=== PATIENT | female | born 1965 | race African-American/Black ===

== ENCOUNTER 2016-09-27 16:21 | Emergency (ER) | payer OTHER ==
[~2016-09-27] VITALS: Ht 170.2 cm; Wt 117.9 kg
[~2016-09-27 16:21] MED LIST: ACETAMINOPHEN500 M3 ORAL; AZITHROMYCIN250 MG ORAL; BACTRIM DS TAB1 EAC1 ORAL; BENAZEPRIL-HCT1 EACH ORAL; CIPROFLOXACIN500 M2 ORAL; CYCLOBENZAPRINE10 MG ORAL; IBUPROFEN600 MG ORAL; LISINOPRIL2.5 MG ORAL; NORCO 5-325 TA1 EACH ORAL; TRAMADOL HCL50 MG ORAL; TYLENOL EXTRA500 MG ORAL
[2016-09-27] MEDS ORDERED: Ketorolac 30mg Inj IV ONE (16:30)
[2016-09-27 16:38] VITALS: BP 165/76
--- NOTE | 2016-09-27 16:40 | Emergency Room Report ---
History of Present Illness General Chief Complaint: Chest Pain Source: Patient, EMS Present Illness HPI 51 YOF BIBEMS for full-day of right sided non radiating chest pain. No assoc nausea/vomiting, diaphoresis, SOB. No previous AMI or PE. Got ASA but declined nitro from EMS. Pain is intermittent, worse with movement. Allergies: Coded Allergies: No Known Allergies (Unverified , 09/25/14) Patient History Past Medical History: HTN Past Surgical History: none Pertinent Family History: none Social History: Denies: alcohol use, drug use, smoking Now: No Immunizations: UTD Reviewed Nursing Documentation: PMH: Agreed, PSxH: Agreed Nursing Documentation-PMH Hx Cardiac Problems: No Hx Hypertension: Yes Hx Pacemaker: No Hx Asthma: No Hx COPD: No Hx Diabetes: Yes Hx Cancer: No Hx Gastrointestinal Problems: No Hx Dialysis: No Hx Neurological Problems: No Hx Cerebrovascular Accident: No Hx Seizures: No Review of Systems All Other Systems: negative except mentioned in HPI Physical Exam Vital Signs Date Time Temp Pulse Resp B/P Pulse Ox O2 Delivery O2 Flow Rate FiO2 09/27/16 16:15 97.3 86 16 189/106 97 Room Air Sp02 EP Interpretation: reviewed, normal General Appearance: normal inspection, well appearing, no apparent distress, alert, GCS 15, non-toxic, obese Head: normocephalic, atraumatic Eyes: bilateral eye EOMI, bilateral eye PERRL ENT: normal ENT inspection, hearing grossly normal, normal voice Neck: normal inspection, full range of motion, supple, no bony tend Respiratory: normal inspection, lungs clear, normal breath sounds, no respiratory distress, no retraction, no wheezing, other - reproducible on palpation. Worse with movement Cardiovascular #1: regular rate, rhythm, no edema Gastrointestinal: normal inspection, normal bowel sounds, non tender, soft, no guarding, no hernia Genitourinary: no CVA tenderness Musculoskeletal: normal inspection, back normal, normal range of motion, Brian' s Sign negative Neurologic: normal inspection, alert, oriented x3, responsive, student specialist III-XII nml as tested, speech normal Psychiatric: normal inspection Skin: normal inspection Lymphatic: normal inspection Medical Decision Making Diagnostic Impression: Primary Impression: Chest pain Qualified Codes: R07.9 - Chest pain, unspecified Additional Impression: CKD (chronic kidney disease) Qualified Codes: N18.9 - Chronic kidney disease, unspecified ER Course Labs: H&H stable. No leuks. Troponin 0. Mild elevation in serumCr (per EMR is baseline likely) CXR: No PTX, PNA or cardiomegaly ECG: No ischemia. No arrythmia. Unlikely ACS given reproducibility, worse with movement. Given duration, unlikely ACS given HEART Score and 1 negative troponin and normal ECG DC Home with Laura PMD followup EKG Diagnostic Results Rate: normal Rhythm: NSR ST Segments: other - No TWI ASA given to the pt in ED: Yes PA Scribe Text ASA given by EMS Rhythm Strip Diag. Results EP Interpretation: yes Rate: 87 Rhythm: NSR, no PVC's, no ectopy Chest X-Ray Diagnostic Results EP Interpretation: Yes Findings: no consolidation, no effusion, no pneumothorax, no acute cardiopulmonary disease Number of Views: 1 Last Vital Signs Date Time Temp Pulse Resp B/P Pulse Ox O2 Delivery O2 Flow Rate FiO2 09/27/16 16:15 97.3 86 16 189/106 97 Room Air Status: improved Disposition: HOME, SELF-CARE SUKUMAR BELTRÁN M.D. Sep 27, 2016 16:40
[2016-09-27 16:59] LABS: EOSINOPHILS % (AUTO) 7.6 % (0.0-3.0); LYMPHOCYTES % (AUTO) 28.5 % (20.0-45.0); MEAN CORPUSCULAR HEMOGLOBIN 27.2 PG (27.0-31.0); MEAN CORPUSCULAR HGB CONC 31.4 G/DL (32.0-36.0); MEAN CORPUSCULAR VOLUME 87 FL (80-99); MEAN PLATELET VOLUME 7.7 FL (6.5-10.1); MONOCYTES % (AUTO) 5.8 % (1.0-10.0); NEUTROPHILS % (AUTO) 56.1 % (45.0-75.0); PLATELET COUNT 256 K/UL (150-450); RED BLOOD COUNT 4.59 M/UL (4.20-5.40); RED CELL DISTRIBUTION WIDTH 14.2 % (11.6-14.8); WHITE BLOOD COUNT 5.1 K/UL (4.8-10.8)
[2016-09-27 17:07] LABS: TROPONIN I < 0.30 ng/mL (<=0.30)
[2016-09-27 17:08] LABS: ALANINE AMINOTRANSFERASE 9 U/L (3-33); ALBUMIN/GLOBULIN RATIO 1.2 (1.0-2.7); ANION GAP 17 (5-15); ASPARTATE AMINO TRANSFERASE 11 U/L (5-40); CALCIUM 10.5 mg/dL (8.6-10.2); CARBON DIOXIDE 22 mEQ/L (20-30); CHLORIDE 100 mEQ/L (98-107); CREATININE 1.1 mg/dL (0.5-0.9); GLOMERULAR FILTRATION RATE > 60 mL/min (>60); HEMOLYSIS 7; LIPASE 31 U/L (< 60); POTASSIUM 3.9 mEQ/L (3.4-4.9); SODIUM 139 mEQ/L (135-145); TOTAL PROTEIN 7.3 g/dL (6.6-8.7)
[2016-09-27] MEDS ORDERED: Morphine Sulfate 2mg/ml Inj IVP ONE (17:30)
[2016-09-27] MEDS ORDERED: Metoclopramide 10mg/2ml Inj IVP ONE (17:30)
[2016-09-27] MEDS ORDERED: ROBAXIN-750750 MG PO (17:37)
[2016-09-27 17:59] VITALS: BP 165/76
--- NOTE | 2016-09-28 10:29 | Diagnostic Imaging Report ---
Indication: Cough Technique: XRAY CHEST 1 V Comparison: 04/14/15 Findings: Cardiomediastinal silhouette is stable. There is no gross consolidation or pleural effusion. Osseous structures demonstrate no acute abnormality. Impression: No acute cardiopulmonary disease.
--- NOTE | 2016-10-02 16:18 | Cardiology Report ---
APPROVED REPORT EKG Measurement Heart [id number] Normal sinus rhythm Nonspecific ST and T wave abnormality Abnormal ECG
== END 2016-09-27 18:00 | disposition home or self-care (01) ==
LOC: EDBD 16:21 → EMR 17:11
DX: R07.9 Chest pain, unspecified (principal); I12.9 Hypertensive chronic kidney disease with stage 1 through stage 4 chronic kidney disease, or unspecified chronic kidney disease; N18.9 Chronic kidney disease, unspecified; E11.9 Type 2 diabetes mellitus without complications
CPT/HCPCS: 36415; 71010; 80053; 82550; 82553; 83690; 84484; 85025; 93005; 96374; 96375; 99284; J1885; J2270; J2765

== ENCOUNTER 2017-02-09 07:19 | Emergency (ER) | payer SELFPAY ==
[2017-02-09] VITALS (11 sets, daily range): BP systolic 149–213; BP diastolic 56–109
[~2017-02-09] VITALS: Ht 154.9 cm; Wt 99.8 kg
[~2017-02-09 07:19] MED LIST changes: +ROBAXIN-750750 MG PO
--- NOTE | 2017-02-09 07:26 | Emergency Room Report ---
History of Present Illness General Chief Complaint: Lower Extremity Injury Source: Patient Present Illness HPI 51-year-old female history of osteoarthritis s/pt fall in shower. Patient states she slipped and fell twisted right ankle now complaining of severe pain and swelling to right ankle. unabl to bear weight/ambulat. Patient denies any head trauma but unknown LOC. Fall was unwitnessed. Patient is not on blood thinners. Patient denies any current headache, nausea, vomiting. Allergies: Coded Allergies: No Known Allergies (Unverified , 09/25/14) Patient History Past Medical History: none Past Surgical History: none Pertinent Family History: none Last Menstrual Period: na Nursing Documentation-PMH Past Medical History: No History, Except For Hx Cardiac Problems: No Hx Hypertension: Yes Hx Pacemaker: No Hx Asthma: No Hx COPD: No Hx Diabetes: Yes Hx Cancer: No Hx Gastrointestinal Problems: No Hx Dialysis: No Hx Neurological Problems: No Hx Cerebrovascular Accident: No Hx Seizures: No Review of Systems Musculoskeletal: Reports: joint pain, joint swelling All Other Systems: negative except mentioned in HPI Physical Exam Vital Signs Date Time Temp Pulse Resp B/P Pulse Ox O2 Delivery O2 Flow Rate FiO2 02/09/17 07:18 98.2 87 18 156/129 98 Room Air Sp02 EP Interpretation: reviewed, normal General Appearance: normal inspection, well appearing, alert, GCS 15, non-toxic , moderate distress Head: normocephalic, atraumatic - no hematoma/ecchymosis Eyes: bilateral eye EOMI, bilateral eye PERRL, bilateral eye normal inspection ENT: normal ENT inspection, normal pharynx, normal voice, moist mucus membranes Neck: normal inspection, full range of motion, supple, no bony tend Respiratory: normal inspection, lungs clear, normal breath sounds, no respiratory distress, no retraction, no wheezing, speaking full sentences, chest symmetrical Cardiovascular #1: normal inspection, regular rate, rhythm, no edema, normal capillary refill Cardiovascular #2: 2+ dorsalis pedis (R), 2+ dorsalis pedis (L) Gastrointestinal: normal inspection, non tender, soft, non-distended, no guarding Musculoskeletal: back normal, other - Right ankle with significant soft tissue swelling and deformity. Tender to palpation entire ankle. Limited range of motion. Dorsalis pedis pulse intact. Able to move toes. No tenderness along tib-fib. Able to bend knee without difficulty. Neurologic: normal inspection, alert, oriented x3, responsive, hands parter III-XII nml as tested, motor strength/tone normal, sensory intact, normal gait, speech normal Psychiatric: normal inspection, judgement/insight normal, memory normal Skin: normal inspection, normal color, no rash, warm/dry, well hydrated, normal turgor Procedures Joint Reduction Joint Reduction : Consent: Written Joint Reduction Site: other - R ankle Procedural Sedation: Yes Reduction Attempts: Other - 2 Pre-Procedure NV Exam: Yes Post-Procedure NV Exam: Yes Post Joint Reduction Film: joint reduced Patient Tolerated: Well Complications: None Procedural Sedation Consent: Written Pre-Sedation Assessment: Eval. Immed. Prior to Sed Airway Assessment (Malampati): I Heart: normal Lungs: normal Abdomen: normal Extremities: abnormal - RLE bony deformityy Procedures/Plans: Closed Reduction Plan for Moderate Sedation: Propofol ASA Score: I Start Time: 09:11 End Time: 09:18 Medical Decision Making Diagnostic Impression: Primary Impression: Trimalleolar fracture of right ankle ER Course 51 yo F with ankle pain s/p fall DDX: fracture/disloc Plan: pain control, procedural sedation, closed reduction, tdap ER course: XR revealing unstable ankle fx - communited fx distal fibula/tibia w/ tibia disloc patient underwent procedural sedation, performed 1st attempt at closed reduction with good alignment on post reduction films. due to instability of fracture, discussed case and films with orthopedic Dr. Thurman. He stated reduction not adequate so a 2nd attempt was performed and patient underwent a second procedural sedation. 2nd attempt still not adequate alignment and ankle was very unstable. DP pulse was intact, patient able to move toes, no loss sensation after splint. I consulted Dr Thurman to come in and that I think patient requires inpatient admission given the fact that patient also lives alone, risk of compartment syndrome for the fx. He said that he would come in to attempt reduction at 7: 30pm. Discussed with patient and she states that she wants to leave as her mother is sick at another hospital. I discussed with patient in depth that she has a significant ankle fracture, and that she needs to stay in the hospital for another attempt at reduction as well as to monitor for compartment syndrome. Patient was told that she may have permanent disability from her fracture and she may not be able to walk normally if we cannot continue our care in the hospital. She verbalized understanding and has capacity. Disposition: Patient left AMA. She was discharged with pain medication. She was discharged with her friend who would watch her as patient received pain medication prior. She was instructed to use the crutches and not bear any weight on RLE. . Strict precautions discussed with patient on when to return to the emergency room including increased redness or swelling joints, increased pain/swelling of extremity, fever or chills, numbness/loss of sensation. Patient also instructed to follow up with an orthopedic doctor tomorrow or come back to the ED. Patient agrees with plan. Laboratory Tests Test 02/09/17 07:50 White Blood Count 5.1 K/UL (4.8-10.8) Red Blood Count 3.72 M/UL (4.20-5.40) L Hemoglobin 9.6 G/DL (12.0-16.0) L Hematocrit 31.8 % (37.0-47.0) L Mean Corpuscular Volume 85 FL (80-99) Mean Corpuscular Hemoglobin 25.7 PG (27.0-31.0) L Mean Corpuscular Hemoglobin Concent 30.1 G/DL (32.0-36.0) L Red Cell Distribution Width 14.6 % (11.6-14.8) Platelet Count 83 K/UL (150-450) L Mean Platelet Volume 7.2 FL (6.5-10.1) Neutrophils (%) (Auto) % (45.0-75.0) Lymphocytes (%) (Auto) % (20.0-45.0) Monocytes (%) (Auto) % (1.0-10.0) Eosinophils (%) (Auto) % (0.0-3.0) Basophils (%) (Auto) % (0.0-2.0) Differential Total Cells Counted 100 Neutrophils % (Manual) 63 % (45-75) Lymphocytes % (Manual) 26 % (20-45) Monocytes % (Manual) 6 % (1-10) Eosinophils % (Manual) 0 % (0-3) Basophils % (Manual) 0 % (0-2) Band Neutrophils 5 % (0-8) Platelet Estimate Decreased L Platelet Morphology Normal Hypochromasia 1+ Anisocytosis 1+ Microcytosis 1+ [place] Cells 1+ Schistocytes 1+ Sodium Level 137 mEQ/L (135-145) Potassium Level 4.5 mEQ/L (3.4-4.9) Chloride Level 101 mEQ/L (98-107) Carbon Dioxide Level 22 mEQ/L (20-30) Anion Gap 14 (5-15) Blood Urea Nitrogen 14 mg/dL (7-23) Creatinine 1.4 mg/dL (0.5-0.9) H Estimate Glomerular Filtration Rate 48.2 mL/min (>60) Glucose Level 129 mg/dL (74-106) H Calcium Level 11.3 mg/dL (8.6-10.2) H Total Bilirubin 0.3 mg/dL (0.0-1.2) Aspartate Amino Transferase (AST) 13 U/L (5-40) Alanine Aminotransferase (ALT) 9 U/L (3-33) Alkaline Phosphatase 65 U/L (35-104) Total Protein 7.8 g/dL (6.6-8.7) Albumin 4.5 g/dL (3.5-5.2) Globulin 3.3 g/dL Albumin/Globulin Ratio 1.3 (1.0-2.7) Last Vital Signs Date Time Temp Pulse Resp B/P Pulse Ox O2 Delivery O2 Flow Rate FiO2 02/09/17 07:18 98.2 87 18 156/129 98 Room Air Disposition: AGAINST MEDICAL ADVICE Condition: Serious Scripts Oxycodone/Acetaminophen 5-325* (PERCOCET 5-325 MG TABLET*) 1 Each Tablet 1 TAB ORAL Q6H Y for For Pain, #20 TAB Prov: Tha Iqbal M.D. 02/09/17 Tha Iqbal M.D. Feb 09, 2017 07:26
[2017-02-09] MEDS ORDERED: Morphine Sulfate 4mg/ml Inj IVP ONE ×2 (07:30→08:45)
[2017-02-09] MEDS ORDERED: Lidocaine 1% Plain 30 ml INJ ONE (08:45)
[2017-02-09] MEDS ORDERED: Propofol 10mg/ml 20ml IV ONE ×2 (09:00→09:45)
[2017-02-09] MEDS ORDERED: fentaNYL 100 mcg/2 mL IV ONE ×2 (09:00→10:30)
--- NOTE | 2017-02-09 09:13 | Diagnostic Imaging Report ---
Indication: Right ankle pain Technique: Right ankle 3 views Comparison: None Findings: There is a trimalleolar fracture with dorsal and lateral dislocation of the talus in relation to the tibia. Soft tissue swelling is noted. Posterior calcaneal enthesophyte is noted. Impression: Trimalleolar fracture with tibiotalar dislocation.
--- NOTE | 2017-02-09 09:14 | Diagnostic Imaging Report ---
Indication: Right ankle pain Technique: Right foot 3 views Comparison: None Findings: There is a trimalleolar fracture with dorsal and lateral dislocation of the talus in relation to the tibia. Soft tissue swelling is noted. Posterior calcaneal enthesophyte is noted. Impression: Trimalleolar fracture with tibiotalar dislocation.
--- NOTE | 2017-02-09 09:42 | Diagnostic Imaging Report ---
Indication: Right ankle pain Technique: XRAY ANKLE 2V RT Comparison: Examination from earlier the same day at 0826 hours Findings: An overlying cast obscures underlying osseous detail. There is redemonstration of a trimalleolar fracture. There is persistent 1.5 cm lateral subluxation of the talus in relation to the tibia. Impression: Redemonstration of trimalleolar fracture. Persistent 1.5 cm lateral subluxation of the talus in relation to the tibia. Clinical correlation recommended.
[2017-02-09] MEDS ORDERED: HYDROmorphone 1mg/ml Carpuject IVP ONE ×2 (11:45→14:45)
[2017-02-09] MEDS ORDERED: Bacitracin Oint 15gm Tube TOPIC ONE (11:52)
[2017-02-09 12:48] LABS: MEAN CORPUSCULAR HEMOGLOBIN 25.7 PG (27.0-31.0); MEAN CORPUSCULAR HGB CONC 30.1 G/DL (32.0-36.0); MEAN CORPUSCULAR VOLUME 85 FL (80-99); MEAN PLATELET VOLUME 7.2 FL (6.5-10.1); PLATELET COUNT 83 K/UL (150-450); RED BLOOD COUNT 3.72 M/UL (4.20-5.40); RED CELL DISTRIBUTION WIDTH 14.6 % (11.6-14.8); WHITE BLOOD COUNT 5.1 K/UL (4.8-10.8)
[2017-02-09 12:56] LABS: ALBUMIN/GLOBULIN RATIO 1.3 (1.0-2.7); CALCIUM 11.3 mg/dL (8.6-10.2); CREATININE 1.4 mg/dL (0.5-0.9); GLOMERULAR FILTRATION RATE 48.2 mL/min (>60); POTASSIUM 4.5 mEQ/L (3.4-4.9); TOTAL PROTEIN 7.8 g/dL (6.6-8.7)
[2017-02-09] MEDS ORDERED: PERCOCET 5-3251 EACH ORAL (13:21)
[2017-02-09] MEDS ORDERED: Tetanus/Diptheria/Pertussis Vaccine 0.5ml Syr IM ONE ×2 (13:23→13:30)
[2017-02-09 13:28] LABS: ANISOCYTOSIS 1+; BAND NEUTROPHILS % (MANUAL) 5 % (0-8); BASOPHILS % (MANUAL) 0 % (0-2); BURR CELLS 1+; EOSINOPHILS % (MANUAL) 0 % (0-3); HYPOCHROMASIA 1+; LYMPHOCYTES % (MANUAL) 26 % (20-45); NEUTROPHILS % (MANUAL) 63 % (45-75); PLATELET ESTIMATE DECREASED; PLATELET MORPHOLOGY NORMAL; TOTAL CELLS COUNTED 100
[2017-02-09 13:29] LABS: MICROCYTES 1+; SCHISTOCYTES 1+
[2017-02-10] MEDS ORDERED: ACETAMINOPHEN-1 EAC1 ORAL (07:49)
--- NOTE | 2017-02-10 08:18 | Diagnostic Imaging Report ---
Indication: Right leg pain Technique: XRAY LEG LOWER TIB/FIB 2V RIGHT Comparison: None Findings: There is a trimalleolar fracture with dorsal and lateral dislocation of the talus in relation to the tibia. Soft tissue swelling is noted. Impression: Trimalleolar fracture with tibiotalar dislocation.
[2017-02-10] MEDS ORDERED: ZESTRIL2.5 MG ORAL (10:17)
--- NOTE | 2017-02-11 08:44 | Diagnostic Imaging Report ---
Indication: Right ankle pain Comparison: Earlier the same day Findings: 2 views of the right ankle obtained. Plaster cast now noted. No change seen. There is fracture dislocation of the ankle as discussed on multiple prior exams and also on the exam subsequent to this current study. Impression: Acute trimalleolar fracture/dislocation
== END 2017-02-09 13:30 | disposition left against medical advice (07) ==
LOC: EDBD 07:19 → EMR 07:59 → CANBEDREQ 14:00
DX: S72.101A Unspecified trochanteric fracture of right femur, initial encounter for closed fracture (principal); I10 Essential (primary) hypertension; E11.9 Type 2 diabetes mellitus without complications
CPT/HCPCS: 27842; 29515; 36415; 73590; 73600; 73610; 73630; 80053; 85007; 85025; 90471; 90715; 96372; 96374; 96375; 99284; J1170; J2001; J2270; J2704; J3010

== ENCOUNTER 2017-02-10 07:25 | Inpatient (IN) | payer MEDICAID ==
[~2017-02-10] VITALS: Ht 175.3 cm; Wt 108.9 kg
[2017-02-10] VITALS (14 sets, daily range): BP systolic 104–233; BP diastolic 47–135
[~2017-02-10 07:25] MED LIST changes: +PERCOCET 5-3251 EACH ORAL
--- NOTE | 2017-02-10 07:31 | Emergency Room Report ---
History of Present Illness General Chief Complaint: To Be Triaged Source: Patient Present Illness HPI 51YOF walk-in with continued severe pain to right ankle. Patient was here yesterday, found to have right ankle trimalleolar fracture. Please see Dr Iqbal's note for full HPI and sequence of events in ED. Patient left AMA yesterday after serious/long discussion with Dr Iqbal who thoroughly discussed importance of admission for unstable ankle fracture. After repeated discussion, patient signed out AMA. Since patient left ER AMA, she had an additional fall on right ankle while trying to ambulate. She filled Rx for percocet but states "its not enough." Patient came back at 7am this morning because "thats what the doctor told me yesterday" but in fact what was relayed to patient was that the orthopedist was going to come see the patient at 7pm last night, not this morning. Allegedly Dr Thurman did come by, but patient had already left AMA. Allergies: Coded Allergies: No Known Allergies (Unverified , 09/25/14) Patient History Past Medical History: see triage record, old chart reviewed Past Surgical History: none Pertinent Family History: none Social History: Denies: alcohol use, drug use, smoking Now: No Immunizations: UTD Reviewed Nursing Documentation: PMH: Agreed, PSxH: Agreed Nursing Documentation-PMH Hx Cardiac Problems: No Hx Hypertension: Yes Hx Pacemaker: No Hx Asthma: No Hx COPD: No Hx Diabetes: Yes Hx Cancer: No Hx Gastrointestinal Problems: No Hx Dialysis: No Hx Neurological Problems: No Hx Cerebrovascular Accident: No Hx Seizures: No Review of Systems All Other Systems: negative except mentioned in HPI Physical Exam Sp02 EP Interpretation: reviewed, normal General Appearance: normal inspection, well appearing, no apparent distress, alert, GCS 15, non-toxic Head: normocephalic, atraumatic Eyes: bilateral eye EOMI, bilateral eye PERRL ENT: normal ENT inspection, hearing grossly normal, normal voice Neck: normal inspection, full range of motion, supple, no bony tend Respiratory: normal inspection, lungs clear, normal breath sounds, no respiratory distress, no retraction, no wheezing Cardiovascular #1: regular rate, rhythm, no edema Gastrointestinal: normal inspection, normal bowel sounds, non tender, soft, no guarding, no hernia Genitourinary: no CVA tenderness Musculoskeletal: other - Right ankle: Obvious swelling. Abrasion to medial aspect of foot. Severe hyperasthesia to any palpation of foot/ankle. Exam limited by patient's writhing on stretcher, moving ankle/foot and preventing full exam Neurologic: normal inspection, alert, oriented x3, responsive, instructional design manager III-XII nml as tested, motor strength/tone normal, speech normal Psychiatric: normal inspection, judgement/insight normal, mood/affect normal Skin: normal inspection, normal color, no rash Procedures Splinting Splinting : Consent: Verbal Hand-Made Type: plaster Splint: Posterior long and sugar tong Pre-Proc Neuro Vasc Exam: normal Post-Proc Neuro Vasc Exam: normal Patient Tolerated: Well Complications: None Joint Reduction Joint Reduction : Consent: Written Joint Reduction Site: other - Right ankle Procedural Sedation: Yes Reduction Attempts: One Pre-Procedure NV Exam: Yes Post-Procedure NV Exam: Yes Post Joint Reduction Film: Talo-tibular dislocation remains Patient Tolerated: Well Complications: None Procedural Sedation Consent: Written Pre-Sedation Assessment: Elective Airway Assessment (Malampati): I Heart: normal Lungs: normal Abdomen: normal Extremities: normal Procedures/Plans: Closed Reduction Plan for Moderate Sedation: Other - ketamine ASA Score: I Start Time: 09:30 End Time: 09:40 Communication: No Apparent Limitation Mental Status: Awake Respiration: Unlabored Skin Condition: WNL Abdomen: WNL Nausea: NO Vomiting: NO Medical Decision Making Diagnostic Impression: Primary Impression: Trimalleolar fracture of right ankle Qualified Codes: S82.851D - Displaced trimalleolar fracture of right lower leg , subsequent encounter for closed fracture with routine healing Additional Impression: GISELLA (acute kidney injury) ER Course Degree of angulation and displacement worse today than films from yesterday, likely d/t patient non-compliance with non-weight bearing instructions after AMA yesterday and reported additional fall Attempted sedation in ER again with minimal improvement - needs surgery/ reduction in OR has Had 3 attempts at reduction in last 2 ED visits Patient lives alone, fx made worse by ambulation yesterday after signing out AMA Labs: Mild GISELLA Endorsed to Dr Cao for panel admission Dr Lee consulted at 1018am -asked patient to be NPO after midnight, will Consult on case EKG Diagnostic Results Rate: tachycardiac Rhythm: NSR ST Segments: no acute changes ASA given to the pt in ED: No Rhythm Strip Diag. Results EP Interpretation: yes Rate: 110 Rhythm: NSR, no PVC's, no ectopy Chest X-Ray Diagnostic Results Chest X-Ray Diagnostic Results : Chest X-Ray Ordered: Yes # of Views/Limited/Complete: 1 View Indication: Other - pre-op EP Interpretation: Yes Interpretation: no consolidation, no effusion, no pneumothorax, no acute cardiopulmonary disease, other - surgical clips Impression: No acute disease Interpreting ER Provider: Dr Sukumar Beltrán MD Status: improved Disposition: ADMITTED INPATIENT Condition: Serious Scripts Acetaminophen With Codeine (T#3) (TYLENOL #3 TAB*) Y Tab 1 TAB ORAL Q8H Y for For Pain, #20 TAB Prov: SUKUMAR BELTRÁN M.D. 02/10/17 SUKUMAR BELTRÁN M.D. Feb 10, 2017 07:31
[2017-02-10] MEDS ORDERED: ACETAMINOPHEN-1 EAC1 ORAL (07:49)
[2017-02-10] MEDS ORDERED: oxyCODONE HCL/Acetaminophen 5/325mg ORAL ONE (08:00)
[2017-02-10 08:43] LABS: BASOPHILS % (AUTO) 0.9 % (0.0-2.0); EOSINOPHILS % (AUTO) 1.9 % (0.0-3.0); MEAN CORPUSCULAR HEMOGLOBIN 26.3 PG (27.0-31.0); MEAN CORPUSCULAR HGB CONC 30.8 G/DL (32.0-36.0); MEAN CORPUSCULAR VOLUME 85 FL (80-99); MEAN PLATELET VOLUME 7.7 FL (6.5-10.1); MONOCYTES % (AUTO) 4.7 % (1.0-10.0); NEUTROPHILS % (AUTO) 60.5 % (45.0-75.0); PLATELET COUNT 287 K/UL (150-450); RED BLOOD COUNT 4.84 M/UL (4.20-5.40); RED CELL DISTRIBUTION WIDTH 15.1 % (11.6-14.8); WHITE BLOOD COUNT 8.6 K/UL (4.8-10.8)
[2017-02-10] MEDS ORDERED: Ketamine HCl 100mg syr IV ONE (08:45)
--- NOTE | 2017-02-10 09:05 | Diagnostic Imaging Report ---
Indication: Pain right ankle Comparison: 02/09/17 Findings: 3 views of the right ankle obtained. Acute fractures of the medial and lateral malleoli demonstrated. There is also small posterior malleolus fracture. There is lateral posterior dislocation of the tibiotalar joint with moderate displacement. In terms of angulation, the ankle is everted. The distal fibular fracture is oblique and comminuted. The medial malleolus fracture is relatively transverse. Soft tissue swelling noted. Degree of displacement and angulation is worse today than on the films from yesterday. Impression: Severe, unstable trimalleolar fracture of the right ankle with moderate lateral and posterior tibiotalar dislocation and eversion as described above.
[2017-02-10 09:35] LABS: INR 1.2 (0.9-1.1); PROTHROMBIN TIME 12.7 SEC (9.30-11.50)
[2017-02-10] MEDS ORDERED: LORazepam Inj 2mg/ml 1ml ONE (09:35)
[2017-02-10 09:43] LABS: ALANINE AMINOTRANSFERASE 9 U/L (3-33); ALBUMIN/GLOBULIN RATIO 1.4 (1.0-2.7); ANION GAP 13 (5-15); ASPARTATE AMINO TRANSFERASE 18 U/L (5-40); CALCIUM 10.6 mg/dL (8.6-10.2); CARBON DIOXIDE 23 mEQ/L (20-30); CHLORIDE 102 mEQ/L (98-107); CREATININE 1.1 mg/dL (0.5-0.9); GLOMERULAR FILTRATION RATE > 60 mL/min (>60); HEMOLYSIS 0; POTASSIUM 4.3 mEQ/L (3.4-4.9); SODIUM 138 mEQ/L (135-145); TOTAL PROTEIN 7.2 g/dL (6.6-8.7)
[2017-02-10] MEDS ORDERED: LORazepam Inj 2mg/ml 1ml IV ONE (09:45)
[2017-02-10 09:53] LABS: CKMB 4.3 ng/mL (< 3.8)
[2017-02-10] MEDS ORDERED: ZESTRIL2.5 MG ORAL (10:17)
[2017-02-10] MEDS ORDERED: Mylanta II UD 30ml ORAL PRN (10:45)
[2017-02-10] MEDS ORDERED: Morphine Sulfate 2mg/ml Inj IVP PRN (10:45)
[2017-02-10] MEDS ORDERED: Miralax 17gm pkt ORAL PRN (10:45)
[2017-02-10] MEDS ORDERED: LORazepam Inj 2mg/ml 1ml IV PRN (10:45)
--- NOTE | 2017-02-10 11:18 | Diagnostic Imaging Report ---
Indication: Chest pain Comparison: 09/27/16 A single view chest radiograph was obtained. Findings: The heart is mildly enlarged. Pulmonary vascularity is appropriate. The diaphragmatic contour is smooth and costophrenic angles are sharp. No pleural effusions are identified. The bones are unremarkable. Impression: No acute findings. Cardiomegaly
[2017-02-10] MEDS ORDERED: Cyclobenzaprine 10mg Tab ORAL PRN (13:00)
[2017-02-10] MEDS: D5 1/2NS 1,000 ML IV SCH (13:57)
--- NOTE | 2017-02-10 16:06 | History and Physical ---
History of Present Illness General Date patient seen: Feb 11, 2017 Reason for Hospitalization: Lower Extremity Injury Present Illness HPI 51 with right ankle trimalleolar fracture, previously left AMA came back for reevaluation, because her pain became unbearable. Allergies: Coded Allergies: No Known Allergies (Unverified , 09/25/14) Medication History Scheduled Acetaminophen* (Acetaminophen Extra Strength*), 500 MG ORAL NEEDED, (Reported ) Azithromycin* (Zithromax*), 250 MG ORAL DAILY Benazepril/Hydrochlorothiazide (Benazepril-Hctz 10-12.5 Mg Tab), 1 TAB ORAL DAILY, (Reported) Ciprofloxacin Hcl* (Ciprofloxacin Hcl*), 500 MG ORAL Q12H Cyclobenzaprine Hcl* (Flexeril*), 10 MG ORAL THREE TIMES A DAY Lisinopril* (Lisinopril*), 2.5 MG ORAL DAILY, (Reported) Lisinopril* (Zestril*), Unknown Dose ORAL DAILY, (Reported) Methocarbamol* (Robaxin-750*), 750 MG PO TID Trimethoprim/Sulfamethoxazole 160/800* (Bactrim Ds Tablet*), 1 TAB ORAL Q12H Scheduled PRN Acetaminophen With Codeine (T#3) (Tylenol #3 Tab*), 1 TAB ORAL Q8H PRN for For Pain Acetaminophen* (Tylenol Extra Strength*), 500 MG ORAL Q8H PRN for Prn Headache/ Temp > 101 Hydrocodone Bit/Acetaminophen 5-325* ([place] 5-325*), 1 TAB ORAL Q6H PRN for For Pain Hydrocodone Bit/Acetaminophen 5-325* ([place] 5-325*), 1 TAB ORAL Q6H PRN for For Pain Ibuprofen* (Motrin*), 600 MG ORAL Q8H PRN for For Pain Oxycodone/Acetaminophen 5-325* (Percocet 5-325 Mg Tablet*), 1 TAB ORAL Q6H PRN for For Pain Tramadol Hcl* (Ultram*), 50 MG ORAL Q6H PRN for For Pain Patient History Healthcare decision maker Resuscitation status Full Code Advanced Directive on File Past Medical/Surgical History Past Medical/Surgical History: (1) HTN (hypertension) Review of Systems All Other Systems: negative except mentioned in HPI Physical Exam General Appearance: WD/WN Lines, tubes and drains: peripheral HEENT: normocephalic, atraumatic Neck: non-tender, normal alignment Respiratory/Chest: chest wall non-tender, lungs clear Cardiovascular/Chest: normal peripheral pulses, normal rate, no gallop/murmur Last 24 Hour Vital Signs Date Time Temp Pulse Resp B/P Pulse Ox O2 Delivery O2 Flow Rate FiO2 02/10/17 11:03 99.8 100 26 104/47 94 Room Air 02/10/17 10:40 99.8 104 20 119/57 99 Room Air 02/10/17 10:25 99.8 110 25 141/123 97 Room Air 02/10/17 10:10 99.8 114 30 141/76 95 Nasal Cannula 4.0 02/10/17 09:55 143 18 177/120 100 Nasal Cannula 4.0 02/10/17 09:50 141 34 233/111 100 Room Air 15.0 02/10/17 09:45 147 32 227/103 100 Room Air 15.0 02/10/17 09:40 153 39 173/117 100 Room Air 15.0 02/10/17 09:35 134 37 165/135 100 Room Air 15.0 02/10/17 09:30 98.5 80 20 128/67 100 Non-Rebreather 15.0 02/10/17 09:30 34.5 143 14 100 Room Air 86 100 114 100 110 100 104 02/10/17 09:25 98.5 82 18 100 Room Air 02/10/17 09:21 98.5 87 23 177/61 100 Room Air 02/10/17 08:54 98.5 86 14 164/63 97 Room Air 02/10/17 08:54 98.5 86 14 164/63 100 Room Air 02/10/17 07:28 98.6 90 14 183/86 100 Room Air Laboratory Tests Test 02/10/17 08:33 02/10/17 09:15 White Blood Count 8.6 K/UL (4.8-10.8) # Red Blood Count 4.84 M/UL (4.20-5.40) Hemoglobin 12.7 G/DL (12.0-16.0) # Hematocrit 41.3 % (37.0-47.0) Mean Corpuscular Volume 85 FL (80-99) Mean Corpuscular Hemoglobin 26.3 PG (27.0-31.0) L Mean Corpuscular Hemoglobin Concent 30.8 G/DL (32.0-36.0) L Red Cell Distribution Width 15.1 % (11.6-14.8) H Platelet Count 287 K/UL (150-450) # Mean Platelet Volume 7.7 FL (6.5-10.1) Neutrophils (%) (Auto) 60.5 % (45.0-75.0) Lymphocytes (%) (Auto) 32.0 % (20.0-45.0) Monocytes (%) (Auto) 4.7 % (1.0-10.0) Eosinophils (%) (Auto) 1.9 % (0.0-3.0) Basophils (%) (Auto) 0.9 % (0.0-2.0) Prothrombin Time 12.7 SEC (9.30-11.50) H Prothromb Time International Ratio 1.2 (0.9-1.1) H Activated Partial Thromboplast Time 51 SEC (23-33) H Sodium Level 138 mEQ/L (135-145) Potassium Level 4.3 mEQ/L (3.4-4.9) Chloride Level 102 mEQ/L (98-107) Carbon Dioxide Level 23 mEQ/L (20-30) Anion Gap 13 (5-15) Blood Urea Nitrogen 15 mg/dL (7-23) Creatinine 1.1 mg/dL (0.5-0.9) H Estimat Glomerular Filtration Rate > 60 mL/min (>60) Glucose Level 114 mg/dL (74-106) H Calcium Level 10.6 mg/dL (8.6-10.2) H Total Bilirubin 0.4 mg/dL (0.0-1.2) Aspartate Amino Transf (AST/SGOT) 18 U/L (5-40) Alanine Aminotransferase (ALT/SGPT) 9 U/L (3-33) Alkaline Phosphatase 60 U/L (35-104) Total Creatine Kinase 635 U/L (26-140) H Creatine Kinase MB 4.3 ng/mL (< 3.8) H Creatine Kinase MB Relative Index 0.6 Total Protein 7.2 g/dL (6.6-8.7) Albumin 4.2 g/dL (3.5-5.2) Globulin 3.0 g/dL Albumin/Globulin Ratio 1.4 (1.0-2.7) Height (Feet): 5 Height (Inches): 8.00 Weight (Pounds): 70 Medications Current Medications Medications (Trade) Dose Ordered Sig/Gladis Route PRN Reason Start Time Stop Time Status Last Admin Dose Admin Acetaminophen (Tylenol) 650 mg Q4H PRN ORAL T>100.5 02/10/17 10:45 03/12/17 10:44 Al Hydroxide/Mg Hydroxide (Mylanta II) 30 ml Q6H PRN ORAL dyspepsia 02/10/17 10:45 03/12/17 10:44 Cyclobenzaprine HCl 10 mg 10 mg TIDPRN PRN ORAL MUSCLE SPASMS 02/10/17 13:00 03/12/17 12:59 Dextrose (Dextrose 50%) STAT PRN IV Hypoglycemia 02/10/17 10:45 03/12/17 10:44 Dextrose/Sodium Chloride (D5 0.45% NS) 1,000 ml @ 50 mls/hr Q20H IV 02/10/17 12:00 03/12/17 11:59 02/10/17 13:57 Heparin Sodium (Porcine) (Heparin 5000 units/ml) 5,000 units EVERY 12 HOURS SUBQ 02/10/17 21:00 03/12/17 20:59 Lorazepam (Ativan 2mg/ml 1ml) 0.5 mg Q4H PRN IV For Anxiety 02/10/17 10:45 02/17/17 10:44 Morphine Sulfate (Morphine Sulfate) 2 mg Q4H PRN IVP Moderate Pain (Pain Scale 4-6) 02/10/17 10:45 02/17/17 10:44 Morphine Sulfate (Morphine Sulfate) 4 mg Q4H PRN IVP Severe Pain (Pain Scale 7-10) 02/10/17 10:45 02/17/17 10:44 Ondansetron HCl (Zofran) 4 mg Q6H PRN IVP Nausea & Vomiting 02/10/17 10:45 03/12/17 10:44 Polyethylene Glycol (Miralax) 17 gm HSPRN PRN ORAL Constipation 02/10/17 10:45 03/12/17 10:44 Zolpidem Tartrate (Ambien) 5 mg HSPRN PRN ORAL Insomnia 02/10/17 21:00 9/20/17 20:59 Assessment/Plan Problem List: (1) Trimalleolar fracture of right ankle ICD Codes: S82.851A - Displaced trimalleolar fracture of right lower leg, initial encounter for closed fracture SNOMED: 239251676 Qualifiers: Qualified Codes: S82.851D - Displaced trimalleolar fracture of right lower leg, subsequent encounter for closed fracture with routine healing (2) HTN (hypertension) ICD Codes: I10 - Essential (primary) hypertension SNOMED: [id number] Assessment/Plan symptomatic treatment ortho consult CARMELINA MORGAN Feb 10, 2017 16:06
[2017-02-10] MEDS: Morphine Sulfate 4mg/ml Inj IVP PRN ×2 (17:01→21:43)
[2017-02-10] MEDS: Heparin 5000 units/ml inj SUBQ SCH (21:00)
[2017-02-10] MEDS ORDERED: Zolpidem 5mg tab ORAL PRN (21:00)
[2017-02-10] MEDS: HYDROmorphone 1mg/ml Carpuject IVP PRN (23:12)
[2017-02-11] VITALS (14 sets, daily range): BP systolic 146–200; BP diastolic 67–98
[2017-02-11] MEDS ORDERED: DiphenhydrAMINE 50mg/ml Inj IVP PRN ×2 (00:15→19:45)
[2017-02-11] MEDS: HYDROmorphone 1mg/ml Carpuject IVP PRN ×2 (05:41→15:10)
[2017-02-11 06:30] LABS: BASOPHILS % (AUTO) 1.4 % (0.0-2.0); LYMPHOCYTES % (AUTO) 37.3 % (20.0-45.0); MEAN CORPUSCULAR HEMOGLOBIN 26.9 PG (27.0-31.0); MEAN CORPUSCULAR HGB CONC 31.4 G/DL (32.0-36.0); MEAN CORPUSCULAR VOLUME 86 FL (80-99); MONOCYTES % (AUTO) 9.5 % (1.0-10.0); NEUTROPHILS % (AUTO) 46.8 % (45.0-75.0); PLATELET COUNT 225 K/UL (150-450); RED BLOOD COUNT 4.07 M/UL (4.20-5.40); RED CELL DISTRIBUTION WIDTH 15.2 % (11.6-14.8); WHITE BLOOD COUNT 7.7 K/UL (4.8-10.8)
[2017-02-11 06:51] LABS: ALANINE AMINOTRANSFERASE 8 U/L (3-33); ALBUMIN/GLOBULIN RATIO 1.3 (1.0-2.7); ANION GAP 8 (5-15); ASPARTATE AMINO TRANSFERASE 16 U/L (5-40); CALCIUM 10.3 mg/dL (8.6-10.2); CARBON DIOXIDE 26 mEQ/L (20-30); CHLORIDE 101 mEQ/L (98-107); GLOMERULAR FILTRATION RATE > 60 mL/min (>60); HEMOLYSIS 1; SODIUM 135 mEQ/L (135-145); TOTAL PROTEIN 6.4 g/dL (6.6-8.7)
[2017-02-11 07:04] LABS: THYROID STIMULATING HORMONE 0.277 uIU/mL (0.300-4.500)
[2017-02-11] MEDS: D5 1/2NS 1,000 ML IV SCH (08:42)
[2017-02-11] MEDS: Heparin 5000 units/ml inj SUBQ SCH ×2 (08:44→21:00)
--- NOTE | 2017-02-11 08:44 | Diagnostic Imaging Report ---
Indication: Right ankle fracture Comparison: Earlier today Findings: 3 views of the right ankle obtained. Severe acute trimalleolar fracture dislocation again demonstrated without change. Plaster cast on noted. Impression: No significant change
--- NOTE | 2017-02-11 08:56 | Consultation ---
History of Present Illness General Date patient seen: Feb 11, 2017 Chief Complaint: Lower Extremity Injury Present Illness Allergies: Coded Allergies: No Known Allergies (Unverified , 09/25/14) Medication History Scheduled Acetaminophen* (Acetaminophen Extra Strength*), 500 MG ORAL NEEDED, (Reported ) Azithromycin* (Zithromax*), 250 MG ORAL DAILY Benazepril/Hydrochlorothiazide (Benazepril-Hctz 10-12.5 Mg Tab), 1 TAB ORAL DAILY, (Reported) Ciprofloxacin Hcl* (Ciprofloxacin Hcl*), 500 MG ORAL Q12H Cyclobenzaprine Hcl* (Flexeril*), 10 MG ORAL THREE TIMES A DAY Lisinopril* (Lisinopril*), 2.5 MG ORAL DAILY, (Reported) Lisinopril* (Zestril*), Unknown Dose ORAL DAILY, (Reported) Methocarbamol* (Robaxin-750*), 750 MG PO TID Trimethoprim/Sulfamethoxazole 160/800* (Bactrim Ds Tablet*), 1 TAB ORAL Q12H Scheduled PRN Acetaminophen With Codeine (T#3) (Tylenol #3 Tab*), 1 TAB ORAL Q8H PRN for For Pain Acetaminophen* (Tylenol Extra Strength*), 500 MG ORAL Q8H PRN for Prn Headache/ Temp > 101 Hydrocodone Bit/Acetaminophen 5-325* ([place] 5-325*), 1 TAB ORAL Q6H PRN for For Pain Hydrocodone Bit/Acetaminophen 5-325* ([place] 5-325*), 1 TAB ORAL Q6H PRN for For Pain Ibuprofen* (Motrin*), 600 MG ORAL Q8H PRN for For Pain Oxycodone/Acetaminophen 5-325* (Percocet 5-325 Mg Tablet*), 1 TAB ORAL Q6H PRN for For Pain Tramadol Hcl* (Ultram*), 50 MG ORAL Q6H PRN for For Pain Patient History Healthcare decision maker Resuscitation status Full Code Advanced Directive on File Physical Exam Last 24 Hour Vital Signs Date Time Temp Pulse Resp B/P Pulse Ox O2 Delivery O2 Flow Rate FiO2 02/11/17 04:00 98.2 81 20 153/90 100 Room Air 02/11/17 00:00 98.1 95 20 154/67 97 Room Air 02/10/17 21:00 97.9 90 20 157/99 97 Room Air 02/10/17 11:42 99.8 98 19 111/56 99 Room Air 4.0 02/10/17 11:42 99.8 98 19 111/56 99 Room Air 02/10/17 11:03 99.8 100 26 104/47 94 Room Air 02/10/17 10:40 99.8 104 20 119/57 99 Room Air 02/10/17 10:25 99.8 110 25 141/123 97 Room Air 02/10/17 10:10 99.8 114 30 141/76 95 Nasal Cannula 4.0 02/10/17 09:55 143 18 177/120 100 Nasal Cannula 4.0 02/10/17 09:50 141 34 233/111 100 Room Air 15.0 02/10/17 09:45 147 32 227/103 100 Room Air 15.0 02/10/17 09:40 153 39 173/117 100 Room Air 15.0 02/10/17 09:35 134 37 165/135 100 Room Air 15.0 02/10/17 09:30 98.5 80 20 128/67 100 Non-Rebreather 15.0 02/10/17 09:30 34.5 143 14 100 Room Air 86 100 114 100 110 100 104 02/10/17 09:25 98.5 82 18 100 Room Air 02/10/17 09:21 98.5 87 23 177/61 100 Room Air Intake and Output 02/10/17 02/11/17 19:00 07:00 Intake Total 100 ml 350 ml Balance 100 ml 350 ml Intake Oral 50 ml IV Total 50 ml 350 ml # Voids 2 Laboratory Tests Test 02/10/17 09:15 02/11/17 05:10 Prothrombin Time 12.7 SEC (9.30-11.50) H Prothromb Time International Ratio 1.2 (0.9-1.1) H Activated Partial Thromboplast Time 51 SEC (23-33) H Sodium Level 138 mEQ/L (135-145) 135 mEQ/L (135-145) Potassium Level 4.3 mEQ/L (3.4-4.9) 4.0 mEQ/L (3.4-4.9) Chloride Level 102 mEQ/L (98-107) 101 mEQ/L (98-107) Carbon Dioxide Level 23 mEQ/L (20-30) 26 mEQ/L (20-30) Anion Gap 13 (5-15) 8 (5-15) Blood Urea Nitrogen 15 mg/dL (7-23) 14 mg/dL (7-23) Creatinine 1.1 mg/dL (0.5-0.9) H 1.0 mg/dL (0.5-0.9) H Estimat Glomerular Filtration Rate > 60 mL/min (>60) > 60 mL/min (>60) Glucose Level 114 mg/dL (74-106) H 134 mg/dL (74-106) H Calcium Level 10.6 mg/dL (8.6-10.2) H 10.3 mg/dL (8.6-10.2) H Total Bilirubin 0.4 mg/dL (0.0-1.2) 0.3 mg/dL (0.0-1.2) Aspartate Amino Transf (AST/SGOT) 18 U/L (5-40) 16 U/L (5-40) Alanine Aminotransferase (ALT/SGPT) 9 U/L (3-33) 8 U/L (3-33) Alkaline Phosphatase 60 U/L (35-104) 58 U/L (35-104) Total Creatine Kinase 635 U/L (26-140) H Creatine Kinase MB 4.3 ng/mL (< 3.8) H Creatine Kinase MB Relative Index 0.6 Total Protein 7.2 g/dL (6.6-8.7) 6.4 g/dL (6.6-8.7) L Albumin 4.2 g/dL (3.5-5.2) 3.7 g/dL (3.5-5.2) Globulin 3.0 g/dL 2.7 g/dL Albumin/Globulin Ratio 1.4 (1.0-2.7) 1.3 (1.0-2.7) White Blood Count 7.7 K/UL (4.8-10.8) Red Blood Count 4.07 M/UL (4.20-5.40) L Hemoglobin 10.9 G/DL (12.0-16.0) L Hematocrit 34.8 % (37.0-47.0) L Mean Corpuscular Volume 86 FL (80-99) Mean Corpuscular Hemoglobin 26.9 PG (27.0-31.0) L Mean Corpuscular Hemoglobin Concent 31.4 G/DL (32.0-36.0) L Red Cell Distribution Width 15.2 % (11.6-14.8) H Platelet Count 225 K/UL (150-450) Mean Platelet Volume 8.0 FL (6.5-10.1) Neutrophils (%) (Auto) 46.8 % (45.0-75.0) Lymphocytes (%) (Auto) 37.3 % (20.0-45.0) Monocytes (%) (Auto) 9.5 % (1.0-10.0) Eosinophils (%) (Auto) 5.0 % (0.0-3.0) H Basophils (%) (Auto) 1.4 % (0.0-2.0) Thyroid Stimulating Hormone (TSH) 0.277 uIU/mL (0.300-4.500) Height (Feet): 5 Height (Inches): 8.00 Weight (Pounds): 70 Medications Current Medications Medications (Trade) Dose Ordered Sig/Gladis Route PRN Reason Start Time Stop Time Status Last Admin Dose Admin Acetaminophen (Tylenol) 650 mg Q4H PRN ORAL T>100.5 02/10/17 10:45 03/12/17 10:44 Al Hydroxide/Mg Hydroxide (Mylanta II) 30 ml Q6H PRN ORAL dyspepsia 02/10/17 10:45 03/12/17 10:44 Cyclobenzaprine HCl 10 mg 10 mg TIDPRN PRN ORAL MUSCLE SPASMS 02/10/17 13:00 03/12/17 12:59 Dextrose (Dextrose 50%) STAT PRN IV Hypoglycemia 02/10/17 10:45 03/12/17 10:44 Dextrose/Sodium Chloride (D5 0.45% NS) 1,000 ml @ 50 mls/hr Q20H IV 02/10/17 12:00 03/12/17 11:59 02/11/17 08:42 Diphenhydramine HCl (Benadryl) 25 mg Q4H PRN IVP Itching 02/11/17 00:15 03/13/17 00:14 Heparin Sodium (Porcine) (Heparin 5000 units/ml) 5,000 units EVERY 12 HOURS SUBQ 02/10/17 21:00 03/12/17 20:59 Hydromorphone HCl (Dilaudid) 1 mg EVERY 3 HOURS PRN IVP Severe Pain (Pain Scale 7-10) 02/10/17 22:45 02/17/17 22:44 02/11/17 05:41 Lorazepam (Ativan 2mg/ml 1ml) 0.5 mg Q4H PRN IV For Anxiety 02/10/17 10:45 02/17/17 10:44 Morphine Sulfate (Morphine Sulfate) 2 mg Q4H PRN IVP Moderate Pain (Pain Scale 4-6) 02/10/17 10:45 02/17/17 10:44 Ondansetron HCl (Zofran) 4 mg Q6H PRN IVP Nausea & Vomiting 02/10/17 10:45 03/12/17 10:44 Polyethylene Glycol (Miralax) 17 gm HSPRN PRN ORAL Constipation 02/10/17 10:45 03/12/17 10:44 Zolpidem Tartrate (Ambien) 5 mg HSPRN PRN ORAL Insomnia 02/10/17 21:00 03/12/17 20:59 02/10/17 20:18 Assessment/Plan Assessment/Plan (1) Right ankle fracture (2) Right ankle pain Seen dictated. ROSELIA HOUSTON Feb 11, 2017 08:56
--- NOTE | 2017-02-11 14:34 | Pulmonology Progress Note ---
Assessment/Plan Problems: (1) Trimalleolar fracture of right ankle (2) HTN (hypertension) Assessment/Plan surgery scheduled for today add lisinopril clonidine prn Subjective ROS Limited/Unobtainable: No Constitutional: Reports: no symptoms HEENT: Repors: no symptoms Respiratory: Reports: no symptoms Allergies: Coded Allergies: No Known Allergies (Unverified , 09/25/14) Objective Last 24 Hour Vital Signs Date Time Temp Pulse Resp B/P Pulse Ox O2 Delivery O2 Flow Rate FiO2 02/11/17 12:00 98.0 82 20 162/98 100 Room Air 02/11/17 10:00 98.0 82 20 162/98 100 Room Air 02/11/17 04:00 98.2 81 20 153/90 100 Room Air 02/11/17 00:00 98.1 95 20 154/67 97 Room Air 02/10/17 21:00 97.9 90 20 157/99 97 Room Air Intake and Output 02/10/17 02/11/17 19:00 07:00 Intake Total 100 ml 350 ml Balance 100 ml 350 ml Intake Oral 50 ml IV Total 50 ml 350 ml # Voids 2 General Appearance: WD/WN HEENT: normocephalic, anicteric Respiratory/Chest: chest wall non-tender, lungs clear Breasts: no masses Cardiovascular: normal rate Abdomen: normal bowel sounds, no organomegaly Extremities: no cyanosis Skin: no lesions Laboratory Tests 02/11/17 05:10: White Blood Count 7.7, Red Blood Count 4.07L, Hemoglobin 10.9L, Hematocrit 34.8L , Mean Corpuscular Volume 86, Mean Corpuscular Hemoglobin 26.9L, Mean Corpuscular Hemoglobin Concent 31.4L, Red Cell Distribution Width 15.2H, Platelet Count 225, Mean Platelet Volume 8.0, Neutrophils (%) (Auto) 46.8, Lymphocytes (%) (Auto) 37.3, Monocytes (%) (Auto) 9.5, Eosinophils (%) (Auto) 5.0H, Basophils (%) (Auto) 1.4, Sodium Level 135, Potassium Level 4.0, Chloride Level 101, Carbon Dioxide Level 26, Anion Gap 8, Blood Urea Nitrogen 14, Creatinine 1.0H, Estimat Glomerular Filtration Rate > 60, Glucose Level 134H, Calcium Level 10.3H, Total Bilirubin 0.3, Aspartate Amino Transf (AST/SGOT) 16, Alanine Aminotransferase (ALT/SGPT) 8, Alkaline Phosphatase 58, Total Protein 6.4L, Albumin 3.7, Globulin 2.7, Albumin/Globulin Ratio 1.3, Thyroid Stimulating Hormone (TSH) 0.277L Current Medications Medications (Trade) Dose Ordered Sig/Gladis Route PRN Reason Start Time Stop Time Status Last Admin Dose Admin Acetaminophen (Tylenol) 650 mg Q4H PRN ORAL T>100.5 02/10/17 10:45 03/12/17 10:44 Al Hydroxide/Mg Hydroxide (Mylanta II) 30 ml Q6H PRN ORAL dyspepsia 02/10/17 10:45 03/12/17 10:44 Cyclobenzaprine HCl 10 mg 10 mg TIDPRN PRN ORAL MUSCLE SPASMS 02/10/17 13:00 03/12/17 12:59 Dextrose (Dextrose 50%) STAT PRN IV Hypoglycemia 02/10/17 10:45 03/12/17 10:44 Dextrose/Sodium Chloride (D5 0.45% NS) 1,000 ml @ 50 mls/hr Q20H IV 02/10/17 12:00 03/12/17 11:59 02/11/17 08:42 Diphenhydramine HCl (Benadryl) 25 mg Q4H PRN IVP Itching 02/11/17 00:15 03/13/17 00:14 Heparin Sodium (Porcine) (Heparin 5000 units/ml) 5,000 units EVERY 12 HOURS SUBQ 02/10/17 21:00 03/12/17 20:59 Hydromorphone HCl (Dilaudid) 1 mg EVERY 3 HOURS PRN IVP Severe Pain (Pain Scale 7-10) 02/10/17 22:45 02/17/17 22:44 02/11/17 05:41 Lorazepam (Ativan 2mg/ml 1ml) 0.5 mg Q4H PRN IV For Anxiety 02/10/17 10:45 02/17/17 10:44 Morphine Sulfate (Morphine Sulfate) 2 mg Q4H PRN IVP Moderate Pain (Pain Scale 4-6) 02/10/17 10:45 02/17/17 10:44 02/11/17 11:38 Ondansetron HCl (Zofran) 4 mg Q6H PRN IVP Nausea & Vomiting 02/10/17 10:45 03/12/17 10:44 Polyethylene Glycol (Miralax) 17 gm HSPRN PRN ORAL Constipation 02/10/17 10:45 03/12/17 10:44 Zolpidem Tartrate (Ambien) 5 mg HSPRN PRN ORAL Insomnia 02/10/17 21:00 03/12/17 20:59 02/10/17 20:18 CARMELINA MORGAN Feb 11, 2017 14:34
[2017-02-11] MEDS ORDERED: Lisinopril 10mg tab ORAL SCH (16:00)
[2017-02-11] MEDS ORDERED: Bacitracin 50000 Units Vial ONE (16:50)
[2017-02-11] MEDS ORDERED: Ropivacaine 5mg/ml Vial 20ml INJ ONE (16:54)
[2017-02-11] MEDS ORDERED: Bupivacaine 0.25% Inj 30ml INJ ONE (16:54)
--- NOTE | 2017-02-11 17:58 | Anethesia Preoperative Eval ---
Anesthesia Pre-op PMH/ROS General Date of Evaluation: Feb 11, 2017 Time of Evaluation: 17:54 Anesthesiologist: Jada ASA Score: ASA 3 Mallampati Score Class I : Soft palate, uvula, fauces, pillars visible Class II: Soft palate, uvula, fauces visible Class III: Soft palate, base of uvula visible Class IV: Only hard plate visible Mallampati Classification: Class III Surgeon: Jesus Diagnosis: R ankle Fx Surgical Procedure: ORIF of R ankle Fx Anesthesia History: none Family History: no anesthesia problems Allergies: Coded Allergies: No Known Allergies (Unverified , 09/25/14) Medications: see eMAR Past Medical History Cardiovascular: Reports: HTN, Denies: CAD, PR, arrhythmia, other, valve dz Pulmonary: Reports: PAYAM, Denies: COPD, asthma, other Gastrointestinal/Genitourinary: Reports: GERD, Denies: CRI, ESRD, other Neurologic/Psychiatric: Reports: depression/anxiety, Denies: CVA, TIA, dementia, other Endocrine: Denies: DM, hypothyroidism, other, steroids HEENT: Denies: [place] (L), [place] (R), cataract (L), cataract (R), glaucoma, other Hematology/Immune: Denies: DVT, anemia, bleeding disorder, other Musculoskeletal/Integumentary: Denies: DDD, DJD, OA, RA, edema, other Other: obesity PMH Narrative: as above PSxH Narrative: see chart Anesthesia Pre-op Phys. Exam Physician Exam Last Vital Signs Date Time Temp Pulse Resp B/P Pulse Ox O2 Delivery O2 Flow Rate FiO2 02/11/17 16:15 162/98 02/11/17 16:00 98.1 76 20 97 Room Air 02/10/17 11:42 4.0 Constitutional: NAD Neurologic: CN 2-12 intact Cardiovascular: RRR, no M/R/G Respiratory: CTA Gastrointestinal: other - obesity Airway Exam Mallampati Score: Class III MO: limited Neck: flexible ROM: limited Teeth: missing Dentures: no lower, no upper Anesthesia Pre-op A/P Labs Hematology Test 02/11/17 05:10 White Blood Count 7.7 K/UL (4.8-10.8) Red Blood Count 4.07 M/UL (4.20-5.40) L Hemoglobin 10.9 G/DL (12.0-16.0) L Hematocrit 34.8 % (37.0-47.0) L Mean Corpuscular Volume 86 FL (80-99) Mean Corpuscular Hemoglobin 26.9 PG (27.0-31.0) L Mean Corpuscular Hemoglobin Concent 31.4 G/DL (32.0-36.0) L Red Cell Distribution Width 15.2 % (11.6-14.8) H Platelet Count 225 K/UL (150-450) Mean Platelet Volume 8.0 FL (6.5-10.1) Neutrophils (%) (Auto) 46.8 % (45.0-75.0) Lymphocytes (%) (Auto) 37.3 % (20.0-45.0) Monocytes (%) (Auto) 9.5 % (1.0-10.0) Eosinophils (%) (Auto) 5.0 % (0.0-3.0) H Basophils (%) (Auto) 1.4 % (0.0-2.0) Chemistry Test 02/11/17 05:10 Sodium Level 135 mEQ/L (135-145) Potassium Level 4.0 mEQ/L (3.4-4.9) Chloride Level 101 mEQ/L (98-107) Carbon Dioxide Level 26 mEQ/L (20-30) Anion Gap 8 (5-15) Blood Urea Nitrogen 14 mg/dL (7-23) Creatinine 1.0 mg/dL (0.5-0.9) H Estimat Glomerular Filtration Rate > 60 mL/min (>60) Glucose Level 134 mg/dL (74-106) H Calcium Level 10.3 mg/dL (8.6-10.2) H Total Bilirubin 0.3 mg/dL (0.0-1.2) Aspartate Amino Transf (AST/SGOT) 16 U/L (5-40) Alanine Aminotransferase (ALT/SGPT) 8 U/L (3-33) Alkaline Phosphatase 58 U/L (35-104) Total Protein 6.4 g/dL (6.6-8.7) L Albumin 3.7 g/dL (3.5-5.2) Globulin 2.7 g/dL Albumin/Globulin Ratio 1.3 (1.0-2.7) Thyroid Stimulating Hormone (TSH) 0.277 uIU/mL (0.300-4.500) Studies Pre-op Studies: EKG - NSR Risk Assessment & Plan Assessment: ASA 3 Plan: GA with LMA R sciatic nerve block for p/op pain control Status Change Before Surgery: No Pre-Antibiotics Drug: Ancef 2gr. Given Within 1 Hr of Incision: Yes Time Given: 18:46 BRENDA CONTRERAS M.D. Feb 11, 2017 17:58
--- NOTE | 2017-02-11 18:37 | Pre-Procedure Note/Attestation ---
Pre-Procedure Note/Attestation Complete Prior to Procedure Planned Procedure: right Procedure Narrative: Right ankle ORIF Indications for Procedure Pre-Operative Diagnosis: Right ankle fracture/dislocation Attestation I attest that I discussed the nature of the procedure; its benefits; risks and complications; and alternatives (and the risks and benefits of such alternatives ), prior to the procedure, with the patient (or the patient's legal payable representative). I attest that, if there was a reasonable possibility of needing a blood transfusion, the patient (or the patient's legal payable representative) was given the [facility] standardized written summary, pursuant to the Moshe Maverick Blood Safety Act ([place] Health and Safety Code # 1645, as amended). I attest that I re-evaluated the patient just prior to the surgery and that there has been no change in the patient's H&P, except as documented below: ROCHELLE ÁLVAREZ Feb 11, 2017 18:37
[2017-02-11] MEDS ORDERED: LR 1000ml 1,000 ML IVLG SCH (19:40)
[2017-02-11] MEDS ORDERED: Midazolam 2mg/2ml Inj IVP PRN (19:45)
[2017-02-11] MEDS ORDERED: Meperidine 25mg/0.5ml Inj (FOR RIGORS ONLY) IV PRN (19:45)
[2017-02-11] MEDS ORDERED: Hydromorphone 0.5mg/0.5ml inj IVP PRN (19:45)
--- NOTE | 2017-02-11 20:53 | Immediate Post-Op Evaluation ---
Immediate Post-Op Evalulation Immediate Post-Op Evalulation Procedure: R ankle Fx ORIF Date of Evaluation: Feb 11, 2017 Time of Evaluation: 20:52 IV Fluids: 1000 Blood Products: none Estimated Blood Loss: 50 Urinary Output: none Blood Pressure Systolic: 168 Blood Pressure Diastolic: 76 Pulse Rate: 74 Respiratory Rate: 20 O2 Sat by Pulse Oximetry: 99 Temperature (Fahrenheit): 97.6 Pain Score (1-10): 3 Nausea: No Vomiting: No Complications none Patient Status: awake, patent, none Hydration Status: adequate BRENDA CONTRERAS M.D. Feb 11, 2017 20:53
--- NOTE | 2017-02-11 20:55 | Brief Operative Note ---
Immediate Post Operative Note Operative Note Pre-op Diagnosis: Right ankle fracture/dislocation Procedure: right ankle ORIF Post-op Diagnosis: Same Post-op Diagnosis: same as pre-op Findings: consistent w/pre-op dx studies Surgeon: Jesus Anesthesiologist: Jada Anesthesia: general, regional Specimen: none Complications: none Condition: stable Estimated Blood Loss: none Drains: none Tourniquet time: 30 - min Implant(s) used?: Yes ROCHELLE ÁLVAREZ Feb 11, 2017 20:55
[2017-02-11] MEDS ORDERED: Zolpidem 5mg tab ORAL PRN (23:00)
[2017-02-11] MEDS ORDERED: Miralax 17gm pkt ORAL PRN (23:00)
[2017-02-11] MEDS ORDERED: Cyclobenzaprine 10mg Tab ORAL PRN (23:00)
[2017-02-12] MEDS ORDERED: DiphenhydrAMINE 50mg/ml Inj IVP PRN (00:15)
--- NOTE | 2017-02-12 01:30 | Operative Note - Dictated ---
DATE OF OPERATION: 02/11/2017 SURGEON: Livan Lee M.D. TECHNICAL MARKETING CONSULTANT: None. ANESTHESIA: General plus regional. COMPLICATIONS: None. ANTIBIOTICS: Ancef. PREOPERATIVE DIAGNOSIS: Right ankle fracture dislocation. POSTOPERATIVE DIAGNOSIS: Right ankle fracture dislocation. PROCEDURE PERFORMED: 1. Right distal fibular open reduction internal fixation using a 7 hole Gaspar and Nephew distal fibular plate. 2. Right distal tibia medial malleolus open reduction, internal fixation using two cannulated 4.0 mm partially threaded screws with washers. 3. Short leg splinting, right lower extremity. HISTORY: The patient sustained a fracture-dislocation of the right ankle. All risks, benefits, and alternatives to surgical intervention were discussed in great detail. Risks included, but were not limited to, bleeding, infection, neurovascular injury, need for additional surgical intervention, failure of pain relief, arthrofibrosis, complications of anesthesia, blood clots, stroke, heart attack, and potentially . She understood these risks, amongst others including nonunion, malunion, rotational deformity, and early arthritis, and consent was signed. PROCEDURE IN DETAIL: The patient was brought into the operating room, placed supine on the operating table. The right lower extremity was correctly verified for surgical site and prepped and draped in standard sterile fashion. Fluoroscopic imaging confirmed appropriate ability to reduce. The tourniquet was insufflated to 275 mmHg above atmospheric pressure for a period of 30 minutes. A lateral incision was created and centered over the fibula. Care was taken not to the lift flaps. There was a highly comminuted fracture with interposing soft tissue. It was all cleared and the fracture reduced. Some of the comminution had no soft tissue attachment and was removed and appropriately placed plate was utilized with both locking and nonlocking screws. The mortise was reduced. Attention was then turned to the medial side. Using a separate incision over the medial malleolus, the fracture was identified and held in position as two wires were passed across it. Two partially threaded 4.0 mm cannulated screws with washers were secured into position. Fluoroscopic imaging and plain radiographs confirmed appropriate fracture reduction and hardware placement. Repeat fluoroscopic imaging revealed no widening of the tibial fibular gap and therefore no syndesmotic injury. Copious irrigation was used in both wounds. They were reapproximated using 0 Vicryl, 2-0 Vicryl, and 3-0 nylon. Dry sterile dressing was applied. A short-leg splint was fashioned out of fiberglass. Both has a posterior splint and a U splint. She tolerated the procedures well. There were no complications. I attest that I performed the entire operation. She was transferred to recovery in good condition. Livan Lee M.D. DR: LINDA JOB#: [id number] CC:
[2017-02-12] MEDS: HYDROmorphone 1mg/ml Carpuject IVP PRN ×5 (02:03→21:07)
[2017-02-12] MEDS: ceFAZolin sod 1 GM in D5W 55 ML IVPB SCH ×3 (02:33→18:22)
[2017-02-12] MEDS ORDERED: LORazepam Inj 2mg/ml 1ml IV PRN (02:45)
[2017-02-12 04:00] VITALS: BP 132/78
--- NOTE | 2017-02-12 04:21 | Consultation ---
DATE OF CONSULTATION: 02/11/2017 PAIN MANAGEMENT CONSULTATION CONSULTING PHYSICIAN: Tan Morrow M.D. REFERRING PHYSICIAN: Ana Cao M.D. PHYSICIAN CERTIFIED FAMILY MEDIATOR: Panda Sesay CHIEF COMPLAINT: Right ankle pain. HISTORY OF PRESENT ILLNESS: This is a 51-year-old female, who is being seen on the Med/Surg floor of [facility] for initial comprehensive pain management consultation. The patient was found to have a right ankle fracture and had been admitted under the care of Dr. Cao and going in for surgery with orthopedist and for surgical intervention. She complains of severe pain, 10/10, on Dilaudid 1 mg IV every 3 hours as needed for severe pain and morphine 2 mg IV every 4 hours needed for moderate pain, which the patient reports has been adequately helping to relieve the pain until the surgery and she has no new complaints. PAST MEDICAL HISTORY: Hypertension. MEDICATIONS: Acetaminophen, Zithromax, benazepril, ciprofloxacin, Flexeril, lisinopril, Zestril, Robaxin, Bactrim, Tylenol #3, Kinney, ibuprofen, Percocet, and Ultram. ALLERGIES: No known drug allergies. SOCIAL HISTORY: Denies smoking, tobacco, drinking alcohol, or drug abuse. REVIEW OF SYSTEMS: Denies rash, fever, chills, sweating, dizziness, drowsiness, blurred vision, sore throat, or change in her weight. No shortness of breath or chest pain. No nausea, vomiting, diarrhea, or blood in the stool or urine. No bowel or bladder incontinence. No dysuria. She is complaining of ankle pain. PHYSICAL EXAMINATION: GENERAL: Alert, awake, and oriented. VITAL SIGNS: Blood pressure 153/90, heart rate is 81, oxygen saturation 100%, respiratory rate 20, and temperature 98.2 degrees Fahrenheit. Height is 5 feet 8 inches. HEENT: PERRLA. NECK: Range of motion is full in all directions. No tenderness to paracervical muscles. No adenopathy. LUNGS: Decreased breath sounds. HEART: Regular. ABDOMEN: Obese. BACK: Range of motion is full on flexion and extension. No tenderness to paraspinous muscles, trapezius, or rhomboid muscles. EXTREMITIES: Upper extremity range of motion is full in all directions. Motor is intact. No cyanosis. No clubbing. No edema. Sensory is intact. Reflexes are not obtainable. No adenopathy. Lower extremity motion is decreased due to the patient's clinical condition. Motor is reduced due to the patient's pain. No cyanosis. No clubbing with brace seen over the right lower extremity with tenderness to palpation. Sensory is intact. Reflexes are not obtainable. No adenopathy. ASSESSMENT AND PLAN: This is a 51-year-old female with right ankle fracture and right ankle pain. The patient will be continued on Dilaudid 1 mg IV every 3 hours as needed for severe pain, morphine 2 mg IV every 4 hours as needed for moderate pain, and is scheduled for surgery dated today with Dr. Thurman. The patient was discussed with Dr. Morrow and Dr. Morrow concurred. We will follow the patient. Thank you very much for the courtesy of this consultation. Tan Morrow M.D. JEET Sesay DR: JFK JOB#: [id number] CC: ALEXIA
[2017-02-12] MEDS ORDERED: Mylanta II UD 30ml ORAL PRN (04:45)
[2017-02-12] MEDS: D5 1/2NS 1,000 ML IV SCH ×2 (05:06→23:27)
--- NOTE | 2017-02-12 05:30 | Consultation ---
DATE OF CONSULTATION: 02/11/2017 ORTHOPEDIC CONSULTATION REQUESTING PHYSICIAN: Ana Cao M.D. DIAGNOSIS: Right ankle fracture dislocation. HISTORY OF PRESENT ILLNESS: The patient is a 51-year-old woman who sustained a right ankle fracture when she slipped and fell at home. Reportedly, she lost consciousness, but is unaware why. She does not strike her head by report. She was seen in the emergency room, splinted, and then left against medical advice. Unfortunately, she stated she needed to because her mother had passed. She then presented back to the hospital for definitive care. She has high blood pressure, for which she takes benazepril and hydrochlorothiazide. She takes lisinopril and Zestril. ALLERGIES: She has no known drug allergies. REVIEW OF SYSTEMS: A 12-point review of systems is negative. She lives up a flight of stairs in an apartment with a roommate. 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 PHYSICAL EXAMINATION: GENERAL: She is well appearing and in no distress. The right lower extremity is splinted. No provocative testing was performed because of the patient's comfort. DIAGNOSTIC DATA: Radiographs show a fracture, dislocation of the right ankle involving the lateral malleolus, medial malleolus, and posterior malleolus. Postreduction films showed no significant change in the alignment of the fracture and dislocation. ASSESSMENT AND PLAN: The patient has a fracture dislocation of right ankle. I have recommended open reduction and internal fixation. She may require syndesmotic repair as well, which will be determined at the time of surgery. She understands all associated risks and we will proceed to the operating room when available. Thank you for the opportunity to consult. Livan Lee M.D. DR: Corinne JOB#: [id number] CC:
[2017-02-12 08:00] VITALS: BP 157/74
[2017-02-12] MEDS: Heparin 5000 units/ml inj SUBQ SCH ×2 (08:15→21:06)
[2017-02-12] MEDS: Lisinopril 10mg tab ORAL SCH (08:16)
--- NOTE | 2017-02-12 08:33 | General Progress Note ---
Assessment/Plan Assessment/Plan (1) Right ankle fracture (2) Right ankle pain (3) S/p ORIF Pt will be continued on Dilaudid and start percocet 10/325mg one tab Q4H PRN. D/w Dr. Morrow and he concurred. Subjective Date patient seen: Feb 12, 2017 Time patient seen: 07:30 - am Allergies: Coded Allergies: No Known Allergies (Unverified , 09/25/14) Subjective REVIEW OF SYSTEMS: Denies rash, fever, chills, sweating, dizziness, drowsiness, blurred vision, sore throat, or change in her weight. No shortness of breath or chest pain. No nausea, vomiting, diarrhea, or blood in the stool or urine. No bowel or bladder incontinence. No dysuria. She is complaining of ankle pain. SUBJECTIVE: Pt reports that her pain has been tolerated on the Dilaudid I d/w her about starting Percocet and she understands. Objective Last 24 Hour Vital Signs Date Time Temp Pulse Resp B/P (MAP) Pulse Ox O2 Delivery O2 Flow Rate FiO2 02/12/17 08:16 157/74 02/12/17 04:00 97.8 74 20 132/78 97 Room Air 02/11/17 23:23 97.3 72 20 146/76 96 Room Air 02/11/17 22:26 98.6 02/11/17 22:25 98.6 02/11/17 21:32 98.6 83 20 153/73 100 Nasal Cannula 3.0 02/11/17 21:15 66 20 149/73 100 Nasal Cannula 3.0 02/11/17 21:00 83 20 169/74 100 Nasal Cannula 3.0 02/11/17 20:53 74 20 99 02/11/17 20:48 84 20 194/86 100 Nasal Cannula 3.0 02/11/17 20:36 80 20 190/81 100 Nasal Cannula 3.0 02/11/17 20:31 77 20 200/88 100 Simple Mask 8.0 02/11/17 20:26 98.6 86 20 188/88 100 Simple Mask 8.0 02/11/17 16:30 98.2 72 20 159/72 97 Room Air 02/11/17 16:15 162/98 02/11/17 16:00 98.1 76 20 159/76 97 Room Air 02/11/17 12:00 98.0 82 20 162/98 100 Room Air 02/11/17 10:00 98.0 82 20 162/98 100 Room Air Height (Feet): 5 Height (Inches): 9.00 Weight (Pounds): 240 Objective GENERAL: Alert, awake, and oriented. HEENT: PERRLA. NECK: Range of motion is full in all directions. No tenderness to paracervical muscles. No adenopathy. LUNGS: Decreased breath sounds. HEART: Regular. ABDOMEN: Obese. BACK: Range of motion is full on flexion and extension. No tenderness to paraspinous muscles, trapezius, or rhomboid muscles. EXTREMITIES: Upper extremity range of motion is full in all directions. Motor is intact. No cyanosis. No clubbing. No edema. Sensory is intact. Reflexes are not obtainable. No adenopathy. Lower extremity motion is decreased due to the patient's clinical condition. Motor is reduced due to the patient's pain. No cyanosis. No clubbing with brace seen over the right lower extremity with tenderness to palpation. Sensory is intact. Reflexes are not obtainable. No adenopathy. ROSELIA HOUSTON Feb 12, 2017 08:33
[2017-02-12] MEDS ORDERED: D5 1/2NS 1000ml IV ONE (08:46)
[2017-02-12] MEDS ORDERED: Tubing IV Secondary IV ONE (08:46)
--- NOTE | 2017-02-12 09:21 | 48 Hour Post Anesthesia Eval ---
Post Anesthesia Evaluation Procedure: R ankle Fx ORIF Date of Evaluation: Feb 12, 2017 Time of Evaluation: 09:20 Blood Pressure Systolic: 136 0: 72 Pulse Rate: 84 Respiratory Rate: 22 Temperature (Fahrenheit): 97.6 O2 Sat by Pulse Oximetry: 97 Airway: patent Nausea: No Vomiting: No Pain Intensity: 4 Hydration Status: adequate Cardiopulmonary Status: stable Mental Status/LOC: patient returned to baseline Follow-up Care/Observations: n/a Post-Anesthesia Complications: none Follow-up care needed: N/A BRENDA CONTRERAS M.D. Feb 12, 2017 09:21
--- NOTE | 2017-02-12 09:33 | Diagnostic Imaging Report ---
Indications: Right ankle fracture-dislocation, open reduction and internal fixation Technique: Portable intraoperative AP and lateral views of the right ankle Findings: Comparison: 02/10/17 2 fixation screws have been placed across fracture of the medial malleolus. External fixation plate and anchoring screws have been placed along the fracture of the distal fibula. Fracture fragments are held in near-anatomic alignment. Posterior malleolar fracture remains minimally displaced. Tibiotalar joint now appears anatomically aligned. Surrounding soft tissues are swollen with gas. IMPRESSION: Open reduction and internal fixation of bimalleolar fractures with reduction of posterior malleolar fractures and ankle joint dislocation
[2017-02-12 12:00] VITALS: BP 155/86
--- NOTE | 2017-02-12 14:00 | Pulmonology Progress Note ---
Assessment/Plan Problems: (1) Trimalleolar fracture of right ankle (2) HTN (hypertension) Assessment/Plan pt tolerated surgery add lisinopril clonidine prn pt/ot dc planning Subjective ROS Limited/Unobtainable: No Constitutional: Reports: no symptoms HEENT: Repors: no symptoms Respiratory: Reports: no symptoms Cardiovascular: Reports: no symptoms Allergies: Coded Allergies: No Known Allergies (Unverified , 09/25/14) Objective Last 24 Hour Vital Signs Date Time Temp Pulse Resp B/P (MAP) Pulse Ox O2 Delivery O2 Flow Rate FiO2 02/12/17 09:21 84 22 97 02/12/17 08:16 157/74 02/12/17 08:00 97.7 87 19 157/74 97 Room Air 02/12/17 04:00 97.8 74 20 132/78 97 Room Air 02/11/17 23:23 97.3 72 20 146/76 96 Room Air 02/11/17 22:26 98.6 02/11/17 22:25 98.6 02/11/17 21:32 98.6 83 20 153/73 100 Nasal Cannula 3.0 02/11/17 21:15 66 20 149/73 100 Nasal Cannula 3.0 02/11/17 21:00 83 20 169/74 100 Nasal Cannula 3.0 02/11/17 20:53 74 20 99 02/11/17 20:48 84 20 194/86 100 Nasal Cannula 3.0 02/11/17 20:36 80 20 190/81 100 Nasal Cannula 3.0 02/11/17 20:31 77 20 200/88 100 Simple Mask 8.0 02/11/17 20:26 98.6 86 20 188/88 100 Simple Mask 8.0 02/11/17 16:30 98.2 72 20 159/72 97 Room Air 02/11/17 16:15 162/98 02/11/17 16:00 98.1 76 20 159/76 97 Room Air General Appearance: WD/WN HEENT: normocephalic, atraumatic, PERRL Respiratory/Chest: chest wall non-tender, lungs clear Breasts: no masses Cardiovascular: normal peripheral pulses Abdomen: normal bowel sounds, soft, non tender Genitourinary: normal external genitalia Extremities: no clubbing Skin: no rash 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 Lymphatic: no neck adenopathy Current Medications Medications (Trade) Dose Ordered Sig/Gladis Route PRN Reason Start Time Stop Time Status Last Admin Dose Admin Acetaminophen (Tylenol) 650 mg Q4H PRN ORAL T>100.5 02/12/17 02:45 03/13/17 02:44 Al Hydroxide/Mg Hydroxide (Mylanta II) 30 ml Q6H PRN ORAL dyspepsia 02/12/17 04:45 03/13/17 04:44 Cefazolin Sodium 1 gm/Dextrose 55 ml @ 110 mls/hr Q8HR@0300,1100,1900 IVPB 02/12/17 03:00 02/12/17 19:29 02/12/17 11:18 Cyclobenzaprine HCl (Flexeril) 10 mg TIDPRN PRN ORAL MUSCLE SPASMS 02/11/17 23:00 03/13/17 22:59 Dextrose (Dextrose 50%) STAT PRN IV Hypoglycemia 02/11/17 23:00 03/13/17 22:59 Dextrose/Sodium Chloride 1,000 ml @ 50 mls/hr Q20H IV 02/10/17 12:00 03/12/17 11:59 02/12/17 05:06 Diphenhydramine HCl (Benadryl) 25 mg Q4H PRN IVP Itching 02/12/17 00:15 03/13/17 00:14 Heparin Sodium (Porcine) (Heparin 5000 units/ml) 5,000 units EVERY 12 HOURS SUBQ 02/10/17 21:00 03/12/17 20:59 02/12/17 08:15 Hydromorphone HCl (Dilaudid) 1 mg Q3H PRN IVP Severe Pain (Pain Scale 7-10) 02/11/17 23:00 02/18/17 22:59 02/12/17 13:05 Lisinopril (Zestril) 10 mg DAILY ORAL 02/12/17 09:00 03/13/17 08:59 02/12/17 08:16 Ondansetron HCl (Zofran) 4 mg Q6H PRN IVP Nausea & Vomiting 02/12/17 04:45 03/13/17 04:44 Oxycodone/ Acetaminophen (Percocet 10/325) 1 tab Q4H PRN ORAL Moderate Pain (Pain Scale 4-6) 02/12/17 09:00 02/19/17 08:59 02/12/17 11:14 Polyethylene Glycol (Miralax) 17 gm HSPRN PRN ORAL Constipation 02/11/17 23:00 03/13/17 22:59 Zolpidem Tartrate (Ambien) 5 mg HSPRN PRN ORAL Insomnia 02/11/17 23:00 03/13/17 22:59 CARMELINA MORGAN Feb 12, 2017 14:00
--- NOTE | 2017-02-12 15:42 | Cardiology Report ---
APPROVED REPORT EKG Measurement Heart [id number] Normal sinus rhythm Anterior infarct, age undetermined Abnormal ECG
[2017-02-12 16:00] VITALS: BP 159/86
[2017-02-12] MEDS ORDERED: Propofol 10mg/ml 20ml IV ONE (19:00)
[2017-02-12] MEDS ORDERED: NS Irrig 1000ml ONE (19:00)
[2017-02-12] MEDS ORDERED: Midazolam 2mg/2ml Inj ONE (19:00)
[2017-02-12] MEDS ORDERED: LR 1000ml ONE (19:00)
[2017-02-12] MEDS ORDERED: Morphine Sulfate 10mg/ml Inj ONE (19:00)
[2017-02-12] MEDS ORDERED: fentaNYL 100 mcg/2 mL IV ONE (19:00)
[2017-02-12 20:00] VITALS: BP 156/75
[2017-02-13] MEDS: HYDROmorphone 1mg/ml Carpuject IVP PRN ×4 (00:46→11:48)
[2017-02-13 04:00] VITALS: BP 175/77
[2017-02-13 08:25] VITALS: BP 164/93
[2017-02-13] MEDS: Lisinopril 10mg tab ORAL SCH (09:13)
[2017-02-13] MEDS: Heparin 5000 units/ml inj SUBQ SCH (09:18)
[2017-02-13 11:51] VITALS: BP 165/94
--- NOTE | 2017-02-13 13:15 | General Progress Note ---
Assessment/Plan Assessment/Plan (1) Right ankle fracture (2) Right ankle pain (3) S/p ORIF Pt will be continued on Dilaudid and Percocet. Patient will be started on Neurontin 300 mg 1 tablet 3 times a day. Prescription of Percocet was written for the patient in anticipation for discharge D/w Dr. Morrow and he concurred. Subjective Date patient seen: Feb 13, 2017 Time patient seen: 01:00 - pm Allergies: Coded Allergies: No Known Allergies (Unverified , 09/25/14) Subjective REVIEW OF SYSTEMS: Denies rash, fever, chills, sweating, dizziness, drowsiness, blurred vision, sore throat, or change in her weight. No shortness of breath or chest pain. No nausea, vomiting, diarrhea, or blood in the stool or urine. No bowel or bladder incontinence. No dysuria. She is complaining of ankle pain. SUBJECTIVE: Patient continues to complain of pain. She reports that the Dilaudid and Percocet have been adequately relieving her pain when taken. Discussed with patient about adding Neurontin to her regimen understands and agrees. Objective Last 24 Hour Vital Signs Date Time Temp Pulse Resp B/P (MAP) Pulse Ox O2 Delivery O2 Flow Rate FiO2 02/13/17 12:18 98.2 02/13/17 11:51 98.2 95 19 165/94 96 Room Air 02/13/17 09:13 164/93 02/13/17 08:25 97.7 82 19 164/93 95 Room Air 02/13/17 04:00 97.9 20 175/77 92 Room Air 02/13/17 00:00 97.7 87 20 96 Room Air 02/12/17 20:00 96.8 79 20 156/75 96 Room Air 02/12/17 16:00 97.9 80 18 159/86 98 Room Air Height (Feet): 5 Height (Inches): 9.00 Weight (Pounds): 240 Objective GENERAL: Alert, awake, and oriented. HEENT: PERRLA. NECK: Range of motion is full in all directions. No tenderness to paracervical muscles. No adenopathy. LUNGS: Decreased breath sounds. HEART: Regular. ABDOMEN: Obese. BACK: Range of motion is full on flexion and extension. No tenderness to paraspinous muscles, trapezius, or rhomboid muscles. EXTREMITIES: Upper extremity range of motion is full in all directions. Motor is intact. No cyanosis. No clubbing. No edema. Sensory is intact. Reflexes are not obtainable. No adenopathy. Lower extremity motion is decreased due to the patient's clinical condition. Motor is reduced due to the patient's pain. No cyanosis. No clubbing with brace seen over the right lower extremity with tenderness to palpation. Sensory is intact. Reflexes are not obtainable. No adenopathy. ROSELIA HOUSTON Feb 13, 2017 13:15
--- NOTE | 2017-02-13 15:17 | Pulmonology Progress Note ---
Assessment/Plan Problems: (1) Trimalleolar fracture of right ankle (2) HTN (hypertension) Assessment/Plan pt tolerated surgery add lisinopril clonidine prn pt/ot dc planning home todqay Subjective ROS Limited/Unobtainable: No Constitutional: Reports: no symptoms HEENT: Repors: no symptoms Respiratory: Reports: no symptoms, other Allergies: Coded Allergies: No Known Allergies (Unverified , 09/25/14) Objective Last 24 Hour Vital Signs Date Time Temp Pulse Resp B/P (MAP) Pulse Ox O2 Delivery O2 Flow Rate FiO2 02/13/17 14:08 98.2 02/13/17 12:18 98.2 02/13/17 11:51 98.2 95 19 165/94 96 Room Air 02/13/17 09:13 164/93 02/13/17 08:25 97.7 82 19 164/93 95 Room Air 02/13/17 04:00 97.9 20 175/77 92 Room Air 02/13/17 00:00 97.7 87 20 96 Room Air 02/12/17 20:00 96.8 79 20 156/75 96 Room Air 02/12/17 16:00 97.9 80 18 159/86 98 Room Air General Appearance: WD/WN HEENT: normocephalic, atraumatic, anicteric Respiratory/Chest: chest wall non-tender, lungs clear Breasts: no masses Cardiovascular: normal rate Abdomen: normal bowel sounds, soft, non tender 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, no motor/sensory deficits Current Medications Medications (Trade) Dose Ordered Sig/Gladis Route PRN Reason Start Time Stop Time Status Last Admin Dose Admin Acetaminophen (Tylenol) 650 mg Q4H PRN ORAL T>100.5 02/12/17 02:45 03/13/17 02:44 Al Hydroxide/Mg Hydroxide (Mylanta II) 30 ml Q6H PRN ORAL dyspepsia 02/12/17 04:45 03/13/17 04:44 Clonidine HCl (Catapres) 0.1 mg Q4H PRN ORAL Give for SBP>160 02/13/17 08:05 03/15/17 08:04 Cyclobenzaprine HCl (Flexeril) 10 mg TIDPRN PRN ORAL MUSCLE SPASMS 02/11/17 23:00 03/13/17 22:59 Dextrose (Dextrose 50%) STAT PRN IV Hypoglycemia 02/11/17 23:00 03/13/17 22:59 Dextrose/Sodium Chloride 1,000 ml @ 50 mls/hr Q20H IV 02/10/17 12:00 03/12/17 11:59 02/12/17 23:27 Diphenhydramine HCl (Benadryl) 25 mg Q4H PRN IVP Itching 02/12/17 00:15 03/13/17 00:14 Gabapentin (Neurontin) 300 mg THREE TIMES A DAY ORAL 02/13/17 18:00 03/15/17 17:59 Heparin Sodium (Porcine) (Heparin 5000 units/ml) 5,000 units EVERY 12 HOURS SUBQ 02/10/17 21:00 03/12/17 20:59 02/13/17 09:18 Hydromorphone HCl (Dilaudid) 1 mg Q3H PRN IVP Severe Pain (Pain Scale 7-10) 02/11/17 23:00 02/18/17 22:59 02/13/17 11:48 Lisinopril (Zestril) 10 mg DAILY ORAL 02/12/17 09:00 03/13/17 08:59 02/13/17 09:13 Ondansetron HCl (Zofran) 4 mg Q6H PRN IVP Nausea & Vomiting 02/12/17 04:45 03/13/17 04:44 Oxycodone/ Acetaminophen (Percocet 10/325) 1 tab Q4H PRN ORAL Breakthru Pain 02/12/17 21:00 02/19/17 20:59 02/13/17 13:09 Polyethylene Glycol (Miralax) 17 gm HSPRN PRN ORAL Constipation 02/11/17 23:00 03/13/17 22:59 Zolpidem Tartrate (Ambien) 5 mg HSPRN PRN ORAL Insomnia 02/11/17 23:00 03/13/17 22:59 CARMELINA MORGAN Feb 13, 2017 15:17
[2017-02-13 15:32] VITALS: BP 193/87
[2017-02-13 16:18] VITALS: BP 170/85
--- NOTE | 2017-02-13 16:50 | Orthopedic Progress Note ---
Orthopedic - Progress Note Subjective Additional Comments right ankle pain s/p ORIF medial and lateral malleolus Objective Vital Signs Last 24 Hour Vital Signs Date Time Temp Pulse Resp B/P (MAP) Pulse Ox O2 Delivery O2 Flow Rate FiO2 02/13/17 16:18 170/85 02/13/17 15:40 193/87 02/13/17 15:32 98.6 86 19 193/87 96 Room Air 02/13/17 14:08 98.2 02/13/17 12:18 98.2 02/13/17 11:51 98.2 95 19 165/94 96 Room Air 02/13/17 09:13 164/93 02/13/17 08:25 97.7 82 19 164/93 95 Room Air 02/13/17 04:00 97.9 20 175/77 92 Room Air 02/13/17 00:00 97.7 87 20 96 Room Air 02/12/17 20:00 96.8 79 20 156/75 96 Room Air I&O Intake and Output 02/13/17 02/14/17 19:00 07:00 Intake Total 250 ml Balance 250 ml IV Total 250 ml Wound: clean, intact Drains: none Neuro Status: normal Vascular Status: normal Assessment Post-op Diagnosis Same Procedure Performed right ankle ORIF Plan Plan: PT Additional Comments STRICTLY NWB right LE Splint was removed for comfort and she will be fitted for fracture boot STRICTLY non weight bearing until further notice. F/U in 10-14 days post op. ROCHELLE ÁLVAREZ Feb 13, 2017 16:50
--- NOTE | 2017-02-14 11:06 | Discharge Summary ---
Discharge Summary Hospital Course Date of Admission Feb 10, 2017 at 09:01 Date of Discharge Feb 13, 2017 at 18:47 Admitting Diagnosis unstable fx right ankle HPI Vu Alonso is a 51 year old female who was admitted on Feb 10, 2017 at 09:01 for Unstable Fracture Right Ankle Hospital Course [id number] Discharge Discharge Disposition Patient was discharged to Home (01) Discharge Diagnoses: Vivian Quach NP Feb 14, 2017 11:06
--- NOTE | 2017-02-15 06:15 | Discharge Summary 2 SIG ---
DATE OF ADMISSION: 02/10/2017 DATE OF DISCHARGE: 02/13/2017 CONSULTANTS: 1. Livan Lee M.D. 2. Tan Morrow M.D. BRIEF HOSPITAL COURSE: The patient is a 51-year-old female who was at emergency room the day prior, who came in status post fall in the shower. She had severe pain and swelling to the right ankle. X-ray showed an unstable ankle fracture. She was recommended admission, however, the patient left against medical advice. Following day, she again presented to ED for complaints of continued severe pain to the right ankle and pain medications were not helping. She had closed reduction and splinting done. Degree of angulation and displacement was worse compared to prior imaging likely due to patient noncompliance and nonweightbearing instructions. He was then admitted, as he would need surgical management. He was given pain management consisting of Dilaudid and morphine. Radiographs showed a fracture, dislocation of the right ankle involving the lateral malleolus, medial malleolus and posterior malleolus. Post reduction films showed no significant change in the alignment of the fracture and dislocation. On 02/11/2017, he underwent a right distal tibial fibular ORIF with short leg splinting of the right lower extremity. Postoperatively, he was continued on pain management and was given physical therapy and occupational therapy. He was advised on strict nonweightbearing on the right lower extremity. Splint was removed for comfort and she was treated for a fracture boot. Bone mineral densities were provided and she was advised to follow up in 10 to 14 days. The patient was eventually discharged home with home health. FINAL DIAGNOSES: 1. Right ankle fracture, dislocation, status post open reduction and internal fixation of medial and lateral malleolus. 2. Hypertension. DISPOSITION: The patient was discharged home with home health to continue PT. DISCHARGE MEDICATIONS: Refer to medication list. FOLLOWUP: The patient was advised to follow up with Dr. Lee in 10 to 14 days postoperatively. ACTIVITY: Stressed to be strictly nonweightbearing on the right lower extremity until further notice. Ana Cao M.D. I have been assigned to dictate discharge summary on this account and I was not involved in the patient's management. Vivian Quach N.P. DR: SERENA JOB#: [id number] CC:
== END 2017-02-13 18:47 | disposition home health service (06) | DRG 313 ==
LOC: EMR 07:40 → 4E 09:01 → EDBEDREQ 11:10 → 4E 16:37
PROC: 0QSJXZZ Reposition Right Fibula, External Approach (ICD-10-PCS; principal; 2017-02-10)
PROC: 0QSGXZZ Reposition Right Tibia, External Approach (ICD-10-PCS; 2017-02-10)
PROC: 0QSJ04Z Reposition Right Fibula with Internal Fixation Device, Open Approach (ICD-10-PCS; 2017-02-11)
PROC: 0QSJ04Z Reposition Right Fibula with Internal Fixation Device, Open Approach (ICD-10-PCS; 2017-02-11)
DX: S82.851A Displaced trimalleolar fracture of right lower leg, initial encounter for closed fracture (principal); I10 Essential (primary) hypertension; W01.0XXA Fall on same level from slipping, tripping and stumbling without subsequent striking against object, initial encounter; Y92.009 Unspecified place in unspecified non-institutional (private) residence as the place of occurrence of the external cause; Z91.19 Patient's noncompliance with other medical treatment and regimen
CPT/HCPCS: 29505; 36415; 71010; 76001; 80053; 82550; 82553; 82962; 84443; 85025; 85610; 85730; 86850; 86900; 86901; 93005; J2180; J2250; J2405

== ENCOUNTER 2017-02-17 18:46 | Emergency (ER) | payer MEDICAID ==
[~2017-02-17] VITALS: Ht 175.3 cm; Wt 99.8 kg
[~2017-02-17 18:46] MED LIST changes: +ACETAMINOPHEN-1 EAC1 ORAL; +ZESTRIL2.5 MG ORAL
[2017-02-17 19:01] VITALS: BP 223/95
--- NOTE | 2017-02-17 20:06 | Emergency Room Report ---
History of Present Illness General Chief Complaint: Pain Source: Patient Present Illness HPI 51YOF walked in with walker wearing only orthopedic shoe on right ankle after recent surgery for trimalleolar fracture repair DC note says was DCed with fracture boot and was told to NOT bear weight However patient endorses has been walking on right foot/ankle C/o blister to medial aspect of ankle States "they didnt send me home with any dressings to care for the wound." Has Dr Lee followup in 2 weeks Otherwise denies fever/chills, pus from wounds Allergies: Coded Allergies: No Known Allergies (Unverified , 09/25/14) Patient History Past Medical History: old chart reviewed Past Surgical History: other - Trimal repair Pertinent Family History: none Last Menstrual Period: One week ago Now: No Immunizations: UTD Reviewed Nursing Documentation: PMH: Agreed, PSxH: Agreed Nursing Documentation-PMH Hx Cardiac Problems: Yes Hx Hypertension: Yes Hx Pacemaker: No Hx Asthma: No Hx COPD: No Hx Diabetes: Yes - "Borderline Diabetic" Hx Cancer: No Hx Gastrointestinal Problems: No Hx Dialysis: No Hx Neurological Problems: No Hx Cerebrovascular Accident: No Hx Seizures: No Review of Systems All Other Systems: negative except mentioned in HPI Physical Exam Vital Signs Date Time Temp Pulse Resp B/P (MAP) Pulse Ox O2 Delivery O2 Flow Rate FiO2 02/17/17 18:49 98.8 90 18 223/95 100 Room Air Sp02 EP Interpretation: reviewed, normal General Appearance: normal inspection, well appearing, no apparent distress, alert, GCS 15, non-toxic Head: normocephalic, atraumatic Eyes: bilateral eye PERRL, bilateral eye EOMI ENT: normal ENT inspection Neck: normal inspection, full range of motion, supple, no bony tend Respiratory: normal inspection, lungs clear, normal breath sounds, no respiratory distress, no retraction, no wheezing Cardiovascular #1: regular rate, rhythm, no edema Gastrointestinal: normal inspection, normal bowel sounds, non tender, soft, no guarding, no hernia Genitourinary: no CVA tenderness Musculoskeletal: normal inspection, back normal, normal range of motion, Brain' s Sign negative, other - Right ankle: Sutures intact on lateral/medial side of ankle. No dehiscence. No infection. 1cm blister on medial aspect. No swelling or deformity. 2+ distal radius pulse Neurologic: normal inspection, alert, oriented x3, responsive, water quality technician III-XII nml as tested, motor strength/tone normal, speech normal Psychiatric: normal inspection, judgement/insight normal, mood/affect normal Skin: normal inspection, normal color, no rash Procedures Splinting Splinting : Consent: Verbal Hand-Made Type: plaster Splint: Posterior long and sugar tong placed below knee on right side Pre-Proc Neuro Vasc Exam: normal Post-Proc Neuro Vasc Exam: normal Patient Tolerated: Well Complications: None Incision and Drainage Incision and Drainage : Consent: Verbal Blade Size: 22 gauge needle I & D Procedure: betadine prep Wound Location: lower extremity Wound's Depth, Shape: superficial Wound Explored: clean Splint Applied?: Yes Sling Applied?: No Patient Tolerated: Well Complications: None Progress 2cm circular blister on medial aspect of ankle lanced with 22gauge needle with fluid aspirated Skin cover left over blister and not removed Covered with sterile bandage Medical Decision Making Diagnostic Impression: Primary Impression: Blister Additional Impression: Trimalleolar fracture of right ankle Qualified Codes: S82.851D - Displaced trimalleolar fracture of right lower leg , subsequent encounter for closed fracture with routine healing ER Course Blister lanced under steril conditions in ED I spoke with Dr Lee, recommended placing Posterior and Sugar tong splint which was done Strongly reiterated NO WEIGHT BEARING to patient Dr Lee says to keep splint on for 2 weeks Otherwise no signs of infection, healing well DC home Last Vital Signs Date Time Temp Pulse Resp B/P (MAP) Pulse Ox O2 Delivery O2 Flow Rate FiO2 02/17/17 19:01 98.8 90 18 223/95 100 Room Air Status: improved Disposition: HOME, SELF-CARE Condition: Improved Patient Instructions: Ankle Fracture, [id number] Additional Instructions: - DO NOT WALK ON RIGHT FOOT/ANKLE - Keep splint on for 2 weeks until you see SUKUMAR Aguilera M.D. Feb 17, 2017 20:06
[2017-02-17 20:50] VITALS: BP 223/95
== END 2017-02-17 20:50 | disposition home or self-care (01) ==
LOC: EMR 19:07
DX: S82.851D Displaced trimalleolar fracture of right lower leg, subsequent encounter for closed fracture with routine healing (principal); S90.521A Blister (nonthermal), right ankle, initial encounter; I10 Essential (primary) hypertension; R73.03 Prediabetes; X58.XXXA Exposure to other specified factors, initial encounter; Y92.9 Unspecified place or not applicable
CPT/HCPCS: 10060; 29505; 99284

== ENCOUNTER 2017-02-24 21:58 | Emergency (ER) | payer MEDICAID ==
[~2017-02-24] VITALS: Ht 172.7 cm; Wt 99.8 kg
[2017-02-24 22:50] VITALS: BP 135/87
--- NOTE | 2017-02-24 23:58 | Emergency Room Report ---
History of Present Illness General Chief Complaint: Lower Extremity Injury Source: Patient Present Illness HPI Is a 51-year-old female who had a trimalleolar fracture surgery done by Dr. Lee. He supposed be nonweightbearing that she's been walking on it. She came in here and had a Alonso dressing done. She said is itchy and she's been walking on it also. She wanted to be change. She said the past apart is rubbing against or bladder part of her ankle. No fever or chills. No nausea no vomiting. She was using a walker when she came in. Allergies: Coded Allergies: No Known Allergies (Unverified , 09/25/14) Patient History Past Medical History: see triage record, old chart reviewed Past Surgical History: other Pertinent Family History: none Social History: Denies: smoking Last Menstrual Period: TWO WEEKS AGO Now: No Immunizations: other Reviewed Nursing Documentation: PMH: Agreed, PSxH: Agreed Nursing Documentation-PMH Hx Cardiac Problems: Yes Hx Hypertension: Yes Hx Pacemaker: No Hx Asthma: No Hx COPD: No Hx Diabetes: Yes - "Borderline Diabetic" Hx Cancer: No Hx Gastrointestinal Problems: No Hx Dialysis: No Hx Neurological Problems: No Hx Cerebrovascular Accident: No Hx Seizures: No Review of Systems Eye: Denies: eye pain, blurred vision ENT: Denies: ear pain, nose congestion, throat swelling Respiratory: Denies: cough, shortness of breath Cardiovascular: Denies: chest pain, palpitations Gastrointestinal: Denies: abdominal pain, diarrhea, nausea, vomiting Musculoskeletal: Denies: back pain, joint pain Skin: Denies: rash Neurological: Denies: headache, numbness Endocrine: Denies: increased thirst, increased urine Hematologic/Lymphatic: Denies: easy bruising All Other Systems: negative except mentioned in HPI Physical Exam Vital Signs Date Time Temp Pulse Resp B/P (MAP) Pulse Ox O2 Delivery O2 Flow Rate FiO2 02/24/17 22:37 98.8 83 18 144/88 98 02/24/17 22:50 Room Air vitals normal Sp02 EP Interpretation: reviewed, normal General Appearance: well appearing, no apparent distress, alert Head: normocephalic, atraumatic Eyes: bilateral eye PERRL, bilateral eye EOMI ENT: hearing grossly normal, normal pharynx Neck: full range of motion, supple, no meningismus Respiratory: chest non-tender, lungs clear, normal breath sounds Cardiovascular #1: regular rate, rhythm, no murmur Gastrointestinal: normal bowel sounds, non tender, no mass, no organomegaly, no bruit, non-distended Musculoskeletal: back normal, normal range of motion, other - Right ankle with a Alonso dressing. I took down the dressing, and suture site looks clean. Psychiatric: mood/affect normal Skin: warm/dry Procedures Splinting Splinting : Consent: Verbal Location: Right ankle Hand-Made Type: plaster Splint: sugar-tong Pre-Proc Neuro Vasc Exam: normal Post-Proc Neuro Vasc Exam: normal Patient Tolerated: Well Complications: None Progress a posterior short-leg splint was also done. Patient tolerated procedure without any problem. Medical Decision Making Diagnostic Impression: Primary Impression: Trimalleolar fracture of right ankle Qualified Codes: S82.851A - Displaced trimalleolar fracture of right lower leg , initial encounter for closed fracture Additional Impression: Wound of cheek Qualified Codes: S01.401D - Unspecified open wound of right cheek and temporomandibular area, subsequent encounter ER Course Patient here for wound check from her trimalleolar fracture. Ankle is fine. Surgical site looks fine. New splint placed. Stressed importance of nonweightbearing. She has appointment with Dr. Sauceda her ready. We'll discharge home. Last Vital Signs Date Time Temp Pulse Resp B/P (MAP) Pulse Ox O2 Delivery O2 Flow Rate FiO2 02/24/17 22:50 98.0 87 16 135/87 100 Room Air Status: improved Disposition: HOME, SELF-CARE Condition: Stable Referrals: NON PHYSICIAN (PCP) Additional Instructions: do not bear weight Followup with Dr. Lee as scheduled. Return if worse. EMETERIO BRAND M.D. Feb 24, 2017 23:58
[2017-02-25 00:50] VITALS: BP 140/82
== END 2017-02-25 00:50 | disposition home or self-care (01) ==
LOC: EMR 23:16
DX: S82.851D Displaced trimalleolar fracture of right lower leg, subsequent encounter for closed fracture with routine healing (principal); S01.401D Unspecified open wound of right cheek and temporomandibular area, subsequent encounter; X58.XXXD Exposure to other specified factors, subsequent encounter; I10 Essential (primary) hypertension
CPT/HCPCS: 29515; 99283

== ENCOUNTER 2017-02-28 13:51 | Emergency (ER) | payer MEDICAID ==
[~2017-02-28] VITALS: Ht 165.1 cm; Wt 104.3 kg
[2017-02-28] MEDS ORDERED: Morphine Sulfate 4mg/ml Inj IM ONE (14:00)
--- NOTE | 2017-02-28 14:59 | Diagnostic Imaging Report ---
Indication: Pain right ankle Comparison: 02/11/17 Findings: 3 views of the right ankle obtained. There is a cast now present which obscured imaging. Lateral compression plate and medial malleolus screws for reduction of a bimalleolar fractures again noted. No obvious additional fractures or obvious change identified. Impression: No significant change. Status post surgical fixation of bimalleolar fractures.
[2017-02-28] MEDS ORDERED: NORCO 5-325 TA1 EAC1 ORAL (15:13)
[2017-02-28 15:43] VITALS: BP 152/83
--- NOTE | 2017-02-28 16:04 | Emergency Room Report ---
History of Present Illness General Chief Complaint: Lower Extremity Injury Source: Patient Present Illness HPI The patient is a 51-year-old female with a right ankle fracture status post ORIF 2 weeks prior presenting for right ankle pain. She states that her significant other kicked her splint on accident which triggered the pain. It is a 6/10 dull ache at rest and becomes a 10 out of 10 dull ache with movement. She was seen in this emergency department recently after she continued to walk on the splint. She states that she has an appointment with her orthopedic surgeon in 2 weeks. She states that she has run out of pain medication. She denies other symptoms including nausea, vomiting, fever, chills, numbness or tingling, shortness of breath, chest pain Allergies: Coded Allergies: No Known Allergies (Unverified , 09/25/14) Patient History Past Medical History: see triage record Pertinent Family History: none Reviewed Nursing Documentation: PMH: Agreed, PSxH: Agreed Nursing Documentation-PMH Hx Cardiac Problems: Yes Hx Hypertension: Yes Hx Pacemaker: No Hx Asthma: No Hx COPD: No Hx Diabetes: Yes - "Borderline Diabetic" Hx Cancer: No Hx Gastrointestinal Problems: No Hx Dialysis: No Hx Neurological Problems: No Hx Cerebrovascular Accident: No Hx Seizures: No Review of Systems All Other Systems: negative except mentioned in HPI Physical Exam Vital Signs Date Time Temp Pulse Resp B/P (MAP) Pulse Ox O2 Delivery O2 Flow Rate FiO2 02/28/17 13:37 98.2 84 16 147/71 100 Room Air Sp02 EP Interpretation: reviewed, normal General Appearance: no apparent distress, alert, GCS 15, non-toxic Eyes: bilateral eye normal inspection, bilateral eye PERRL ENT: hearing grossly normal, normal pharynx, no angioedema, normal voice Cardiovascular #1: normal capillary refill Musculoskeletal: other - R leg splint in place Neurologic: alert, oriented x3, responsive, motor strength/tone normal, sensory intact, speech normal Psychiatric: judgement/insight normal, memory normal, mood/affect normal, no suicidal/homicidal ideation Skin: normal color, no rash, warm/dry, well hydrated Lymphatic: no adenopathy Medical Decision Making PA Attestation Dr. Yang is my supervising physician. Patient management was discussed with my supervising physician Diagnostic Impression: Primary Impression: Ankle fracture Qualified Codes: S82.891D - Other fracture of right lower leg, subsequent encounter for closed fracture with routine healing ER Course The patient is a 51-year-old female presenting for right ankle pain status post ORIF Differential diagnoses considered but not limited to: Fracture, contusion, hardware failure, cellulitis, compartment syndrome, among others Physical exam: No apparent distress Right leg splint is in place. Sensation is intact to the toes with normal cap refill. Splint appears to be in good shape. Right ankle x-ray reveals hardware in place. No acute findings. The patient is given IM morphine with good relief of pain She'll be discharged home and is to followup with orthopedics. ER precautions are given. She was told to not put any weight on the right foot Other X-Ray Diagnostic Results Other X-Ray Diagnostic Results : X-Ray ordered: R ankle # of Views/Limited Vs Complete: 3 View Indication: Pain EP Interpretation: Yes Interpretation: no dislocation, no soft tissue swelling, other - well healing fractures Impression: Other - hardware in place. no acute fracture Electronically Signed by: Chico Yang MD PA Scribe Text I am acting as scribe for my supervising physician. My supervising physician's interpretation of the right ankle x-ray shows no significant change. Hardware in place Last Vital Signs Date Time Temp Pulse Resp B/P (MAP) Pulse Ox O2 Delivery O2 Flow Rate FiO2 02/28/17 15:43 90 16 152/83 99 Room Air 02/28/17 13:37 98.2 Status: improved Disposition: HOME, SELF-CARE Condition: Improved Scripts Hydrocodone Bit/Acetaminophen 5-325* (NORCO 5-325 TABLET*) 1 Each Tablet 1 TAB ORAL Q6HR Y for For Pain, #10 TAB Prov: MAI ALVAREZ 02/28/17 Referrals: NOT CHOSEN [facility]/,REFERRING (PCP) Patient Instructions: Ankle Fracture, Cast or Splint Care Additional Instructions: I discussed my findings with the patient. All questions and concerns have been answered. Treatment and medication compliance have been addressed. I advised the patient that they need to follow up with orthopedic physician. Return to ED if pain remains or worsens, numbness or tingling occurs, new rash is noticed, fever is noticed, or if needed for any reason. Patient verbalized understanding of discharge instructions. MAI ALVAREZ Feb 28, 2017 16:04
== END 2017-02-28 16:08 | disposition home or self-care (01) ==
LOC: EDBD 13:51 → EMR 14:21
DX: S82.891D Other fracture of right lower leg, subsequent encounter for closed fracture with routine healing (principal); X58.XXXD Exposure to other specified factors, subsequent encounter; I10 Essential (primary) hypertension
CPT/HCPCS: 73610; 96372; 99283; J2270

== ENCOUNTER 2017-03-05 15:53 | Emergency (ER) | payer MEDICAID ==
[~2017-03-05] VITALS: Ht 162.6 cm; Wt 102.1 kg
[~2017-03-05 15:53] MED LIST changes: +NORCO 5-325 TA1 EAC1 ORAL
[2017-03-05 16:02] VITALS: BP 146/68
[2017-03-05] MEDS ORDERED: oxyCODONE HCL/Acetaminophen 5/325mg ORAL ONE (16:30)
[2017-03-05 17:56] VITALS: BP 160/75
[2017-03-05] MEDS ORDERED: Bacitracin Oint UD TOPIC ONE ×2 (18:46→19:00)
[2017-03-05] MEDS ORDERED: KEFLEX500 MG ORAL (19:36)
[2017-03-05] MEDS ORDERED: NORCO 5-325 TA1 EAC1 ORAL (19:37)
[2017-03-05] MEDS ORDERED: Cephalexin 500mg cap ORAL ONE (19:45)
[2017-03-05] MEDS ORDERED: Norco 5mg/325mg tab ORAL ONE (19:45)
[2017-03-05 20:01] VITALS: BP 155/77
[2017-03-05 20:03] VITALS: BP 155/77
--- NOTE | 2017-03-06 13:15 | Diagnostic Imaging Report ---
Indication: Pain right ankle Comparison: 02/28/17 Findings: 3 views of the right ankle obtained. Bimalleolar fractures with surgical reduction plate and screws again demonstrated unchanged. The fracture and surgery was recent. There is no change in alignment. No new fractures are seen. Impression: No change
--- NOTE | 2017-03-07 02:54 | Emergency Room Report ---
History of Present Illness General Chief Complaint: General Complaint Source: Patient Present Illness HPI Patient is a 51-year-old female who presented after increased pain to her right leg. Patient had recent ORIF of right ankle. She had been noted to have a gradual onset of pain. She reports having taken Percocet. She had been using a 3 sided splint. She reportedly had been elevating her leg and had not been weightbearing. The patient has also reported generalized skin rash. This had been present for several days. Allergies: Coded Allergies: No Known Allergies (Unverified , 09/25/14) Patient History Past Medical History: see triage record Now: No Reviewed Nursing Documentation: PMH: Agreed, PSxH: Agreed Nursing Documentation-PMH Past Medical History: No Stated History Hx Cardiac Problems: Yes Hx Hypertension: Yes Hx Pacemaker: No Hx Asthma: No Hx COPD: No Hx Diabetes: Yes - "Borderline Diabetic" Hx Cancer: No Hx Gastrointestinal Problems: No Hx Dialysis: No Hx Neurological Problems: No Hx Cerebrovascular Accident: No Hx Seizures: No Review of Systems All Other Systems: negative except mentioned in HPI Physical Exam Vital Signs Date Time Temp Pulse Resp B/P (MAP) Pulse Ox O2 Delivery O2 Flow Rate FiO2 03/05/17 15:49 98.1 78 16 130/80 98 Room Air Sp02 EP Interpretation: reviewed, normal General Appearance: normal inspection, well appearing, no apparent distress, alert, GCS 15, obese Head: atraumatic ENT: normal ENT inspection, hearing grossly normal, normal voice Neck: normal inspection, full range of motion, supple, no bony tend Respiratory: normal inspection, lungs clear, normal breath sounds, no respiratory distress, no retraction, no wheezing Cardiovascular #1: regular rate, rhythm Gastrointestinal: normal inspection, normal bowel sounds, non tender, soft, no guarding, no hernia Genitourinary: no CVA tenderness Musculoskeletal: normal inspection, back normal, decreased range of motion Neurologic: normal inspection, alert, oriented x3, responsive, engine monitor III-XII nml as tested, speech normal Psychiatric: normal inspection, judgement/insight normal, mood/affect normal Skin: other - left leg lateral wound with serous drainage, skin maceration Medical Decision Making Diagnostic Impression: Primary Impression: Ankle fracture Additional Impression: Folliculitis ER Course Patient presented for ankle pain. Differential diagnosis included was not limited to sprain, fracture, dislocation, cellulitis, osteomyelitis, vascular insufficiency. X-ray imaging of the ankle was ordered. Patient was noted to have the postsurgical changes on the x-ray imaging. The patient was given oral pain medications. Wound is redressed. The [facility] database was reviewed for the patient's prior prescription history. Patient was given prescription for oral antibiotics for what appears to be some skin infection to her abdomen and right thigh. Appears to be a folliculitis. The patient is advised followup with Dr. Lee for orthopedic. She is advised to continue nonweightbearing status after discussion with Dr. Lee Last Vital Signs Date Time Temp Pulse Resp B/P (MAP) Pulse Ox O2 Delivery O2 Flow Rate FiO2 03/05/17 20:03 98.0 92 21 155/77 99 Room Air Status: improved Disposition: HOME, SELF-CARE Condition: Stable Scripts Hydrocodone Bit/Acetaminophen 5-325* (NORCO 5-325 TABLET*) 1 Each Tablet 1 TAB ORAL Q4H Y for For Pain, #20 TAB Prov: Bubba Corbett 03/05/17 Cephalexin* (KEFLEX*) 500 Mg Capsule 500 MG ORAL EVERY 6 HOURS, #28 CAP 0 Refills Prov: Bubba Corbett 03/05/17 Referrals: NOT CHOSEN [facility]/,REFERRING (PCP) Patient Instructions: Ankle Pain, Folliculitis Bubba Corbett Mar 07, 2017 02:53
== END 2017-03-05 20:05 | disposition home or self-care (01) ==
LOC: EDBD 15:53 → EMR 16:13
DX: S82.891A Other fracture of right lower leg, initial encounter for closed fracture (principal); X58.XXXA Exposure to other specified factors, initial encounter; Y93.9 Activity, unspecified; Y99.9 Unspecified external cause status; L73.9 Follicular disorder, unspecified; M79.604 Pain in right leg; Z86.79 Personal history of other diseases of the circulatory system; I10 Essential (primary) hypertension; R73.03 Prediabetes
CPT/HCPCS: 99284